=== PATIENT | male | born 1980 | race Caucasian/White ===

== ENCOUNTER 2016-07-28 18:27 | Emergency (ER) | payer OTHER ==
[~2016-07-28] VITALS: Ht 175.3 cm; Wt 100.0 kg
[2016-07-28] MEDS ORDERED: SODIUM CHLORIDE 0.9% 1,000 ML IV ONE (18:45)
[2016-07-28 19:03] LABS: BASOPHILS % (AUTO) 0.9 % (0.0-2.0); EOSINOPHILS % (AUTO) 2.5 % (1.0-6.0); HEMATOCRIT 48.1 % (41-53); HEMOGLOBIN 15.7 g/dL (13.5-17.5); LYMPHOCYTES # (AUTO) 2.1 K/uL (1.0-4.8); LYMPHOCYTES % (AUTO) 29.3 % (22.0-44.0); MEAN CORPUSCULAR HEMOGLOBIN 29.9 pg (26.0-34.0); MEAN CORPUSCULAR HGB CONC 32.7 G/dL (31.0-37.0); MEAN CORPUSCULAR VOLUME 91 fL (80-100); MONOCYTES # (AUTO) 0.5 K/uL (0.1-1.0); MONOCYTES % (AUTO) 7.2 % (2.0-9.0); NEUTROPHILS # (AUTO) 4.4 K/uL (1.8-7.7); NEUTROPHILS % (AUTO) 60.1 % (40.0-70.0); PLATELET COUNT (AUTO) 191 K/uL (150-450); RED BLOOD CELL COUNT(AUTO) 5.25 MIL/uL (4.50-5.90); RED CELL DISTRIBUTION WIDTH 13.6 % (11.5-14.5); WHITE BLOOD COUNT (AUTO) 7.2 K/uL (4.5-11.0)
[2016-07-28 19:10] LABS: ANION GAP 12 mmol/L (8-16); CALCIUM, TOTAL 8.2 mg/dL (8.8-10.5); CARBON DIOXIDE 25 mmol/L (22-29); CHLORIDE 106 mmol/L (98-107); CREATININE 1.07 mg/dL (0.60-1.30); GLOMERULAR FILTR. RATE CALC > 60 mL/min (>60); POTASSIUM 3.5 mmol/L (3.5-5.1); SODIUM SERUM 143 mmol/L (136-145); UREA NITROGEN, BLOOD 7 mg/dL (7-18)
[2016-07-28 19:16] LABS: ALANINE AMINOTRANSFERASE 152 U/L (12-78); ALBUMIN 3.6 g/dL (3.4-5.0); ASPARTATE AMINOTRANSFERASE 51 U/L (15-37); BILIRUBIN,TOTAL 0.3 mg/dL (0.1-1.0); TOTAL PROTEIN, SERUM 7.8 g/dL (6.4-8.2)
[2016-07-28] MEDS ORDERED: CefTRIAXone SODIUM 1 GM/VIAL IM ONE (20:45)
[2016-07-28] MEDS ORDERED: LIDOCAINE HCL/PF 1% 2 ML VIAL IM ONE (20:45)
[2016-07-28] MEDS ORDERED: AZITHROMYCIN 250 MG TABLET PO ONE (20:45)
[2016-07-28 22:47] VITALS: BP 122/64
== END 2016-07-28 22:50 | disposition home or self-care (01) ==
LOC: EMS 18:29
DX: Z00.8 Encounter for other general examination (principal); F10.129 Alcohol abuse with intoxication, unspecified; F17.210 Nicotine dependence, cigarettes, uncomplicated; F12.90 Cannabis use, unspecified, uncomplicated; Y90.8 Blood alcohol level of 240 mg/100 ml or more
CPT/HCPCS: 36415; 80053; 85025; 96360; 96361; 96372; 99285; G0480; J0696; J3490; J7030

== ENCOUNTER 2016-10-01 00:05 | Emergency (ER) | payer OTHER ==
[2016-10-01 04:51] VITALS: BP 119/70
== END 2016-10-01 04:55 | disposition home or self-care (01) ==
LOC: EMS 00:06
DX: F10.129 Alcohol abuse with intoxication, unspecified (principal); F12.90 Cannabis use, unspecified, uncomplicated; F17.210 Nicotine dependence, cigarettes, uncomplicated; Y90.9 Presence of alcohol in blood, level not specified
CPT/HCPCS: 99283; 99406

== ENCOUNTER 2017-08-12 15:42 | Emergency (ER) | payer OTHER ==
[~2017-08-12] VITALS: Ht 175.3 cm; Wt 104.5 kg
[2017-08-12 15:44] VITALS: BP 120/76
== END 2017-08-12 16:59 | disposition left against medical advice (07) ==
LOC: EMS 15:43
DX: K21.9 Gastro-esophageal reflux disease without esophagitis (principal); Z53.21 Procedure and treatment not carried out due to patient leaving prior to being seen by health care provider

== ENCOUNTER 2017-09-19 00:19 | Inpatient (IN) | payer MEDICAID, OTHER ==
[~2017-09-19] VITALS: Ht 172.7 cm; Wt 102.5 kg
[2017-09-19] VITALS (7 sets, daily range): BP systolic 119–152; BP diastolic 71–84
[2017-09-19 01:23] LABS: BASOPHILS % (AUTO) 1.2 % (0.0-2.0); EOSINOPHILS % (AUTO) 2.8 % (1.0-6.0); HEMATOCRIT 50.5 % (41-53); HEMOGLOBIN 17.5 g/dL (13.5-17.5); LYMPHOCYTES # (AUTO) 2.7 K/uL (1.0-4.8); LYMPHOCYTES % (AUTO) 39.3 % (22.0-44.0); MEAN CORPUSCULAR HEMOGLOBIN 31.3 pg (26.0-34.0); MEAN CORPUSCULAR HGB CONC 34.7 G/dL (31.0-37.0); MEAN CORPUSCULAR VOLUME 90 fL (80-100); MONOCYTES # (AUTO) 0.5 K/uL (0.1-1.0); MONOCYTES % (AUTO) 7.6 % (2.0-9.0); NEUTROPHILS # (AUTO) 3.4 K/uL (1.8-7.7); NEUTROPHILS % (AUTO) 49.1 % (40.0-70.0); PLATELET COUNT (AUTO) 253 K/uL (150-450); RED BLOOD CELL COUNT(AUTO) 5.59 MIL/uL (4.50-5.90); RED CELL DISTRIBUTION WIDTH 13.4 % (11.5-14.5)
[2017-09-19 01:33] LABS: ANION GAP 7 mmol/L (8-16); CALCIUM, TOTAL 8.1 mg/dL (8.8-10.5); CARBON DIOXIDE 30 mmol/L (22-29); CHLORIDE 100 mmol/L (98-107); CREATININE 1.09 mg/dL (0.60-1.30); GLOMERULAR FILTR. RATE CALC > 60 mL/min (>60); GLUCOSE,RANDOM 120 mg/dL (70-110); POTASSIUM 4.3 mmol/L (3.5-5.1); SODIUM SERUM 137 mmol/L (136-145); UREA NITROGEN, BLOOD 6 mg/dL (7-18)
[2017-09-19 01:39] LABS: ALANINE AMINOTRANSFERASE 187 U/L (12-78); ALBUMIN 3.7 g/dL (3.4-5.0); ALKALINE PHOSPHATASE 110 U/L (46-116); ASPARTATE AMINOTRANSFERASE 97 U/L (15-37); BILIRUBIN,TOTAL 0.4 mg/dL (0.1-1.0); TOTAL PROTEIN, SERUM 8.3 g/dL (6.4-8.2)
[2017-09-19] MEDS ORDERED: PB/HYOSCY/ATR/SCOP/LIDO/MAALOX 55 ML BOTTLE PO ONE (01:45)
[2017-09-19 02:20] LABS: AMPHET/METH SCREEN,URINE NEGATIVE (NEGATIVE); BARBITURATE SCREEN, URINE NEGATIVE (NEGATIVE); BENZODIAZEPINES SCREEN,URINE NEGATIVE (NEGATIVE); CANNABINOID SCREEN,URINE NEGATIVE (NEGATIVE); COCAINE SCREEN,URINE NEGATIVE (NEGATIVE); METHADONE SCREEN, URINE NEGATIVE (NEGATIVE); OPIATE SCREEN,URINE NEGATIVE (NEGATIVE)
[2017-09-19 02:21] LABS: PHENCYCLIDINE SCREEN,URINE NEGATIVE (NEGATIVE)
[2017-09-19] MEDS ORDERED: ZOLPIDEM TARTRATE 10 MG TABLET PO PRN (06:15)
[2017-09-19] MEDS ORDERED: HALOPERIDOL 5 MG TABLET PO PRN (06:15)
[2017-09-19] MEDS ORDERED: LORazepam 2 MG TABLET PO PRN ×2 (06:15→15:00)
[2017-09-19 08:40] LABS: APPEARANCE,URINE CLEAR (CLEAR); BILIRUBIN,URINE NEGATIVE (NEGATIVE); GLUCOSE, URINE (UA) NEGATIVE (NEGATIVE); KETONES,URINE NEGATIVE (NEGATIVE); LEUKOCYTE ESTERASE ,URINE NEGATIVE (NEGATIVE); NITRATE,URINE NEGATIVE (NEGATIVE); OCCULT BLOOD,URINE NEGATIVE (NEGATIVE); PH,URINE 5.5 (5.0-8.0); PROTEIN,URINE NEGATIVE (NEGATIVE); UROBILINOGEN,URINE 0.2 mg/dL (<=1.0)
[2017-09-19] MEDS ORDERED: HydrOXYzine PAMOATE 50 MG CAPSULE PO PRN (15:00)
[2017-09-19] MEDS ORDERED: CYANOCOBALAMIN 1,000 MCG/ML VIAL IM ONE (15:00)
[2017-09-19] MEDS ORDERED: LOPERAMIDE HCL 2 MG CAPSULE PO PRN (15:00)
[2017-09-19] MEDS ORDERED: GuaiFENesin/D-METHORPHAN [SUGAR-FREE] 200-20MG/10 ML SYRUP UDCUP PO PRN (15:00)
[2017-09-19] MEDS: THIAMINE HCL 100 MG TABLET PO SCH (16:37)
[2017-09-19] MEDS: FOLIC ACID 1 MG TABLET PO SCH (16:37)
[2017-09-19] MEDS: MULTIVITAMINS WITH MINERALS, THERAPEUTIC TABLET PO SCH (16:37)
[2017-09-20] VITALS (8 sets, daily range): BP systolic 117–148; BP diastolic 65–82
[2017-09-20] MEDS ORDERED: LORazepam 2 MG TABLET PO PRN (07:00)
[2017-09-20] MEDS: FOLIC ACID 1 MG TABLET PO SCH (08:29)
[2017-09-20] MEDS: MULTIVITAMINS WITH MINERALS, THERAPEUTIC TABLET PO SCH (08:29)
[2017-09-20] MEDS: LORazepam 2 MG TABLET PO SCH ×4 (08:29→20:17)
[2017-09-20] MEDS: THIAMINE HCL 100 MG TABLET PO SCH ×2 (08:29→16:42)
[2017-09-20 09:11] LABS: CHOL/HDL RATIO 3.5 (4.2-7.3)
[2017-09-20] MEDS ORDERED: IBUPROFEN 400 MG TABLET PO PRN (16:00)
[2017-09-20] MEDS ORDERED: ACETAMINOPHEN 325 MG TABLET PO PRN (16:00)
[2017-09-21 01:24] VITALS: BP 111/60
[2017-09-21 08:14] VITALS: BP 120/68
[2017-09-21 08:15] VITALS: BP 120/68
[2017-09-21 08:15] LABS: HEMOGLOBIN A1C 6.1 % (4.5-6.2)
[2017-09-21 08:27] LABS: THYROID STIMULATING HORMONE 2.29 uIU/mL (0.36-3.74)
[2017-09-21] MEDS: FOLIC ACID 1 MG TABLET PO SCH (09:34)
[2017-09-21] MEDS: MULTIVITAMINS WITH MINERALS, THERAPEUTIC TABLET PO SCH (09:34)
[2017-09-21] MEDS: THIAMINE HCL 100 MG TABLET PO SCH ×2 (09:34→16:36)
[2017-09-21] MEDS: QUEtiapine FUMARATE 25 MG TABLET PO SCH ×2 (09:37→16:36)
[2017-09-21] MEDS: LORazepam 2 MG TABLET PO SCH ×4 (09:46→20:27)
[2017-09-21 17:27] VITALS: BP 116/65
[2017-09-22 00:21] VITALS: BP 118/95
[2017-09-22 00:30] VITALS: BP 118/95
[2017-09-22] MEDS ORDERED: LORazepam 1 MG TABLET PO PRN (07:00)
[2017-09-22 08:09] VITALS: BP 122/65
[2017-09-22] MEDS: QUEtiapine FUMARATE 25 MG TABLET PO SCH (08:51)
[2017-09-22] MEDS: THIAMINE HCL 100 MG TABLET PO SCH (08:51)
[2017-09-22] MEDS: FOLIC ACID 1 MG TABLET PO SCH (08:52)
[2017-09-22] MEDS: MULTIVITAMINS WITH MINERALS, THERAPEUTIC TABLET PO SCH (08:52)
[2017-09-22] MEDS: LORazepam 1 MG TABLET PO SCH ×2 (08:52→12:25)
[2017-09-22] MEDS ORDERED: QUET25TA PO (11:53)
[2017-09-23] MEDS ORDERED: LORazepam 1 MG TABLET PO PRN (07:00)
== END 2017-09-22 15:16 | disposition home or self-care (01) | DRG 750 ==
LOC: EMS 00:20 → B2S 13:50
PROVIDERS: ADMIT Psychiatry & Neurology Child & Adolescent Psychiatry; ATTEND Psychiatry & Neurology Child & Adolescent Psychiatry
DX: F20.0 Paranoid schizophrenia (principal); R45.851 Suicidal ideations; R74.0 Nonspecific elevation of levels of transaminase and lactic acid dehydrogenase [LDH]; F32.9 Major depressive disorder, single episode, unspecified; F17.210 Nicotine dependence, cigarettes, uncomplicated; F41.9 Anxiety disorder, unspecified; Y90.8 Blood alcohol level of 240 mg/100 ml or more; F10.20 Alcohol dependence, uncomplicated
CPT/HCPCS: 80074; 83036; 84443; 99285; G0480; J3420

== ENCOUNTER 2017-10-11 00:16 | Emergency (ER) | payer MEDICAID, OTHER ==
[~2017-10-11] VITALS: Ht 175.3 cm; Wt 109.1 kg
[~2017-10-11 00:16] MED LIST: QUET25TA PO
[2017-10-11 00:24] VITALS: BP 127/73
[2017-10-11] MEDS ORDERED: CEPHALEXIN MONOHYDRATE 500 MG CAPSULE PO ONE (01:30)
== END 2017-10-11 01:44 | disposition home or self-care (01) ==
LOC: EMS 00:20
DX: L03.114 Cellulitis of left upper limb (principal); F12.90 Cannabis use, unspecified, uncomplicated; F15.90 Other stimulant use, unspecified, uncomplicated; F17.210 Nicotine dependence, cigarettes, uncomplicated
CPT/HCPCS: 99283

== ENCOUNTER 2017-10-23 18:59 | Emergency (ER) | payer OTHER ==
[~2017-10-23] VITALS: Ht 177.8 cm; Wt 113.6 kg
[2017-10-23 19:03] VITALS: BP 114/74
== END 2017-10-23 21:35 | disposition left against medical advice (07) ==
LOC: EMS 19:00
DX: F10.129 Alcohol abuse with intoxication, unspecified (principal); F17.210 Nicotine dependence, cigarettes, uncomplicated; Z53.21 Procedure and treatment not carried out due to patient leaving prior to being seen by health care provider

== ENCOUNTER 2017-10-30 12:20 | Emergency (ER) | payer OTHER ==
[~2017-10-30] VITALS: Ht 175.3 cm; Wt 100.0 kg
[2017-10-30 12:57] VITALS: BP 137/75
== END 2017-10-30 13:45 | disposition left against medical advice (07) ==
LOC: EMS 12:21
DX: F10.129 Alcohol abuse with intoxication, unspecified (principal); F17.210 Nicotine dependence, cigarettes, uncomplicated; F20.9 Schizophrenia, unspecified; Z53.21 Procedure and treatment not carried out due to patient leaving prior to being seen by health care provider; Y90.8 Blood alcohol level of 240 mg/100 ml or more
CPT/HCPCS: 36415; 99281; G0480

== ENCOUNTER 2018-01-10 10:42 | Emergency (ER) | payer OTHER ==
[~2018-01-10] VITALS: Ht 175.3 cm; Wt 102.3 kg
[2018-01-10] MEDS ORDERED: ONDANSETRON HCL 4 MG/2 ML VIAL IVP ONE (12:30)
[2018-01-10] MEDS ORDERED: SODIUM CHLORIDE 0.9% 1,000 ML IV ONE (12:30)
[2018-01-10 12:45] LABS: BASOPHILS % (AUTO) 0.4 % (0.0-2.0); EOSINOPHILS % (AUTO) 0.1 % (1.0-6.0); HEMATOCRIT 49.9 % (41-53); LYMPHOCYTES # (AUTO) 0.8 K/uL (1.0-4.8); LYMPHOCYTES % (AUTO) 12.4 % (22.0-44.0); MEAN CORPUSCULAR HEMOGLOBIN 31.4 pg (26.0-34.0); MEAN CORPUSCULAR VOLUME 92 fL (80-100); MONOCYTES # (AUTO) 0.3 K/uL (0.1-1.0); MONOCYTES % (AUTO) 4.7 % (2.0-9.0); NEUTROPHILS # (AUTO) 5.5 K/uL (1.8-7.7); NEUTROPHILS % (AUTO) 82.4 % (40.0-70.0); PLATELET COUNT (AUTO) 241 K/uL (150-450); RED BLOOD CELL COUNT(AUTO) 5.41 MIL/uL (4.50-5.90); RED CELL DISTRIBUTION WIDTH 13.5 % (11.5-14.5)
[2018-01-10 12:53] LABS: ANION GAP 10 mmol/L (8-16); CALCIUM, TOTAL 8.5 mg/dL (8.8-10.5); CARBON DIOXIDE 29 mmol/L (22-29); CHLORIDE 97 mmol/L (98-107); CREATININE 0.89 mg/dL (0.60-1.30); GLOMERULAR FILTR. RATE CALC > 60 mL/min (>60); GLUCOSE,RANDOM 115 mg/dL (70-110); POTASSIUM 3.9 mmol/L (3.5-5.1); SODIUM SERUM 136 mmol/L (136-145); UREA NITROGEN, BLOOD 4 mg/dL (7-18)
[2018-01-10 12:58] LABS: APPEARANCE,URINE CLEAR (CLEAR); BILIRUBIN,URINE NEGATIVE (NEGATIVE); GLUCOSE, URINE (UA) NEGATIVE (NEGATIVE); KETONES,URINE NEGATIVE (NEGATIVE); LEUKOCYTE ESTERASE ,URINE NEGATIVE (NEGATIVE); NITRATE,URINE NEGATIVE (NEGATIVE); OCCULT BLOOD,URINE TRACE (NEGATIVE); PH,URINE 6.5 (5.0-8.0); PROTEIN,URINE NEGATIVE (NEGATIVE); UROBILINOGEN,URINE 0.2 mg/dL (<=1.0)
[2018-01-10 12:59] LABS: ALANINE AMINOTRANSFERASE 83 U/L (12-78); ALBUMIN 3.6 g/dL (3.4-5.0); ALKALINE PHOSPHATASE 100 U/L (46-116); ASPARTATE AMINOTRANSFERASE 44 U/L (15-37); BILIRUBIN,TOTAL 0.5 mg/dL (0.1-1.0); LIPASE 190 U/L (73-393); TOTAL PROTEIN, SERUM 8.4 g/dL (6.4-8.2)
[2018-01-10 13:06] LABS: BACTERIA,URINE None Seen /HPF (None Seen); RBC,URINE 0-2 /HPF (0-2); WBC,URINE None Seen /HPF (0-5)
[2018-01-10 15:07] VITALS: BP 125/79
== END 2018-01-10 15:15 | disposition home or self-care (01) ==
LOC: EMS 12:06
DX: F41.9 Anxiety disorder, unspecified (principal); R03.0 Elevated blood-pressure reading, without diagnosis of hypertension; R51 Headache; R11.0 Nausea; F10.10 Alcohol abuse, uncomplicated; F20.9 Schizophrenia, unspecified; F17.210 Nicotine dependence, cigarettes, uncomplicated
CPT/HCPCS: 36415; 80053; 81001; 83690; 85025; 96374; 99284; J2405; J7030

== ENCOUNTER 2018-04-26 23:14 | Emergency (ER) | payer OTHER ==
[~2018-04-26] VITALS: Ht 170.2 cm; Wt 113.6 kg
[2018-04-26 23:53] LABS: BASOPHILS % (AUTO) 0.8 % (0.0-2.0); HEMATOCRIT 47.5 % (41-53); HEMOGLOBIN 16.3 g/dL (13.5-17.5); LYMPHOCYTES % (AUTO) 19.5 % (22.0-44.0); MEAN CORPUSCULAR HEMOGLOBIN 31.2 pg (26.0-34.0); MEAN CORPUSCULAR HGB CONC 34.2 G/dL (31.0-37.0); MEAN CORPUSCULAR VOLUME 91 fL (80-100); MONOCYTES # (AUTO) 0.9 K/uL (0.1-1.0); MONOCYTES % (AUTO) 8.7 % (2.0-9.0); NEUTROPHILS # (AUTO) 7.1 K/uL (1.8-7.7); PLATELET COUNT (AUTO) 203 K/uL (150-450); RED BLOOD CELL COUNT(AUTO) 5.22 MIL/uL (4.50-5.90); RED CELL DISTRIBUTION WIDTH 13.4 % (11.5-14.5)
[2018-04-26 23:56] LABS: APPEARANCE,URINE CLEAR (CLEAR); BILIRUBIN,URINE NEGATIVE (NEGATIVE); GLUCOSE, URINE (UA) NEGATIVE (NEGATIVE); KETONES,URINE NEGATIVE (NEGATIVE); LEUKOCYTE ESTERASE ,URINE NEGATIVE (NEGATIVE); NITRATE,URINE NEGATIVE (NEGATIVE); OCCULT BLOOD,URINE TRACE (NEGATIVE); PROTEIN,URINE POS 1+ (NEGATIVE); UROBILINOGEN,URINE 0.2 mg/dL (<=1.0)
[2018-04-27 00:03] LABS: ANION GAP 14 mmol/L (8-16); CALCIUM, TOTAL 8.2 mg/dL (8.8-10.5); CARBON DIOXIDE 22 mmol/L (22-29); CHLORIDE 103 mmol/L (98-107); CREATININE 0.98 mg/dL (0.60-1.30); GLOMERULAR FILTR. RATE CALC > 60 mL/min (>60); GLUCOSE,RANDOM 111 mg/dL (70-110); POTASSIUM 3.7 mmol/L (3.5-5.1); SODIUM SERUM 139 mmol/L (136-145); UREA NITROGEN, BLOOD 11 mg/dL (7-18)
[2018-04-27 00:06] LABS: BACTERIA,URINE None Seen /HPF (None Seen); RBC,URINE 0-2 /HPF (0-2); SQUAMOUS EPITHELIAL CELL,UR None Seen /LPF (None Seen)
[2018-04-27 00:09] LABS: ALANINE AMINOTRANSFERASE 193 U/L (12-78); ALBUMIN 3.6 g/dL (3.4-5.0); ALKALINE PHOSPHATASE 84 U/L (46-116); ASPARTATE AMINOTRANSFERASE 111 U/L (15-37); BILIRUBIN,TOTAL 0.3 mg/dL (0.1-1.0)
[2018-04-27 00:17] LABS: AMPHET/METH SCREEN,URINE NEGATIVE (NEGATIVE); BARBITURATE SCREEN, URINE NEGATIVE (NEGATIVE); BENZODIAZEPINES SCREEN,URINE NEGATIVE (NEGATIVE); CANNABINOID SCREEN,URINE NEGATIVE (NEGATIVE); COCAINE SCREEN,URINE NEGATIVE (NEGATIVE); METHADONE SCREEN, URINE NEGATIVE (NEGATIVE); OPIATE SCREEN,URINE NEGATIVE (NEGATIVE); PHENCYCLIDINE SCREEN,URINE NEGATIVE (NEGATIVE)
[2018-04-27] MEDS ORDERED: SODIUM CHLORIDE 0.9% 1,000 ML IV ONE (01:30)
[2018-04-27 01:49] VITALS: BP 130/78
[2018-04-27 01:52] LABS: LIPASE 290 U/L (73-393)
== END 2018-04-27 01:59 | disposition home or self-care (01) ==
LOC: EMS 23:15
DX: F10.129 Alcohol abuse with intoxication, unspecified (principal); R74.0 Nonspecific elevation of levels of transaminase and lactic acid dehydrogenase [LDH]; R00.0 Tachycardia, unspecified; F20.9 Schizophrenia, unspecified; F17.210 Nicotine dependence, cigarettes, uncomplicated; F15.90 Other stimulant use, unspecified, uncomplicated; Y90.8 Blood alcohol level of 240 mg/100 ml or more
CPT/HCPCS: 36415; 80053; 80307; 81001; 83690; 84484; 85025; 93005; 99284; G0480; J7030

== ENCOUNTER 2018-06-28 11:37 | Emergency (ER) | payer OTHER ==
[~2018-06-28] VITALS: Ht 177.8 cm; Wt 104.5 kg
[2018-06-28 11:38] VITALS: BP 117/89
[2018-06-28 13:32] LABS: BASOPHILS % (AUTO) 1.2 % (0.0-2.0); EOSINOPHILS % (AUTO) 2.3 % (1.0-6.0); HEMOGLOBIN 17.7 g/dL (13.5-17.5); LYMPHOCYTES # (AUTO) 2.5 K/uL (1.0-4.8); LYMPHOCYTES % (AUTO) 33.2 % (22.0-44.0); MEAN CORPUSCULAR HEMOGLOBIN 31.1 pg (26.0-34.0); MEAN CORPUSCULAR VOLUME 92 fL (80-100); MONOCYTES # (AUTO) 0.4 K/uL (0.1-1.0); MONOCYTES % (AUTO) 5.7 % (2.0-9.0); NEUTROPHILS # (AUTO) 4.4 K/uL (1.8-7.7); NEUTROPHILS % (AUTO) 57.6 % (40.0-70.0); PLATELET COUNT (AUTO) 267 K/uL (150-450); RED BLOOD CELL COUNT(AUTO) 5.68 MIL/uL (4.50-5.90); RED CELL DISTRIBUTION WIDTH 13.6 % (11.5-14.5)
[2018-06-28 13:46] LABS: ANION GAP 13 mmol/L (8-16); CALCIUM, TOTAL 8.6 mg/dL (8.8-10.5); CARBON DIOXIDE 24 mmol/L (22-29); CHLORIDE 103 mmol/L (98-107); CREATININE 0.81 mg/dL (0.60-1.30); GLOMERULAR FILTR. RATE CALC > 60 mL/min (>60); GLUCOSE,RANDOM 104 mg/dL (70-110); SODIUM SERUM 140 mmol/L (136-145); UREA NITROGEN, BLOOD 7 mg/dL (7-18)
[2018-06-28 13:50] LABS: ALANINE AMINOTRANSFERASE 113 U/L (12-78); ALKALINE PHOSPHATASE 96 U/L (46-116); ASPARTATE AMINOTRANSFERASE 46 U/L (15-37); BILIRUBIN,TOTAL 0.2 mg/dL (0.1-1.0); TOTAL PROTEIN, SERUM 8.7 g/dL (6.4-8.2)
== END 2018-06-28 17:33 | disposition left against medical advice (07) ==
LOC: EMS 11:38
DX: R10.9 Unspecified abdominal pain (principal); F31.9 Bipolar disorder, unspecified; F41.9 Anxiety disorder, unspecified; F20.9 Schizophrenia, unspecified; F12.90 Cannabis use, unspecified, uncomplicated; F17.210 Nicotine dependence, cigarettes, uncomplicated; F15.90 Other stimulant use, unspecified, uncomplicated

== ENCOUNTER 2021-12-17 20:30 | Emergency (ER) | payer OTHER | END 2021-12-17 21:30 | disposition left against medical advice (07) | LOC: EMS 20:31 | DX: Z53.21 Procedure and treatment not carried out due to patient leaving prior to being seen by health care provider (principal) ==

== ENCOUNTER 2022-02-17 19:15 | Emergency (ER) | payer OTHER ==
[~2022-02-17] VITALS: Ht 170.2 cm; Wt 84.1 kg
[2022-02-17 20:09] LABS: APPEARANCE,URINE CLEAR (CLEAR); BILIRUBIN,URINE NEGATIVE (NEGATIVE); GLUCOSE, URINE (UA) NEGATIVE (NEGATIVE); KETONES,URINE NEGATIVE (NEGATIVE); LEUKOCYTE ESTERASE ,URINE NEGATIVE (NEGATIVE); NITRATE,URINE NEGATIVE (NEGATIVE); OCCULT BLOOD,URINE NEGATIVE (NEGATIVE); PH,URINE 6.5 (5.0-8.0); PROTEIN,URINE NEGATIVE (NEGATIVE); SPECIFIC GRAVITIY, URINE 1.004 (1.003-1.030); UROBILINOGEN,URINE <=1.0 mg/dL (<=1.0)
[2022-02-17 21:09] LABS: BASOPHILS % (AUTO) 0.5 % (0.0-2.0); HEMATOCRIT 46.2 % (41-53); HEMOGLOBIN 15.4 g/dL (13.5-17.5); LYMPHOCYTES # (AUTO) 2.1 K/uL (1.0-4.8); LYMPHOCYTES % (AUTO) 25.9 % (22.0-44.0); MEAN CORPUSCULAR HEMOGLOBIN 28.9 pg (26.0-34.0); MEAN CORPUSCULAR HGB CONC 33.3 G/dL (31.0-37.0); MEAN CORPUSCULAR VOLUME 87 fL (80-100); MONOCYTES # (AUTO) 0.5 K/uL (0.1-1.0); MONOCYTES % (AUTO) 6.5 % (2.0-9.0); NEUTROPHILS # (AUTO) 5.2 K/uL (1.8-7.7); NEUTROPHILS % (AUTO) 64.1 % (40.0-70.0); PLATELET COUNT (AUTO) 187 K/uL (150-450); RED BLOOD CELL COUNT(AUTO) 5.33 MIL/uL (4.50-5.90); RED CELL DISTRIBUTION WIDTH 13.8 % (11.5-14.5)
[2022-02-17 21:17] LABS: ANION GAP 8 mmol/L (8-16); CALCIUM, TOTAL 9.2 mg/dL (8.8-10.5); CARBON DIOXIDE 31 mmol/L (22-29); CHLORIDE 101 mmol/L (98-107); CREATININE 1.08 mg/dL (0.60-1.30); GLUCOSE,RANDOM 132 mg/dL (70-110); SODIUM SERUM 140 mmol/L (136-145); UREA NITROGEN, BLOOD 10 mg/dL (7-18)
[2022-02-17 21:18] LABS: GLOMERULAR FILTR. RATE CALC > 60 mL/min (>60)
[2022-02-17 21:24] LABS: ALANINE AMINOTRANSFERASE 34 U/L (12-78); ALKALINE PHOSPHATASE 93 U/L (46-116); ASPARTATE AMINOTRANSFERASE 17 U/L (15-37); BILIRUBIN,TOTAL 0.3 mg/dL (0.1-1.0); TOTAL PROTEIN, SERUM 7.8 g/dL (6.4-8.2)
[2022-02-17 21:52] LABS: COVID AG,FIA SOURCE NASAL SWAB
[2022-02-17 22:10] LABS: INFLUENZA TYPE A NEGATIVE FOR TYPE A (NEGATIVE); INFLUENZA TYPE B NEGATIVE FOR TYPE B (NEGATIVE)
[2022-02-17 23:45] VITALS: BP 117/75
== END 2022-02-17 23:46 | disposition home or self-care (01) ==
LOC: EMS 19:17
DX: F20.9 Schizophrenia, unspecified (principal); F41.9 Anxiety disorder, unspecified; F31.9 Bipolar disorder, unspecified; B00.9 Herpesviral infection, unspecified; F17.210 Nicotine dependence, cigarettes, uncomplicated; F12.90 Cannabis use, unspecified, uncomplicated; F15.90 Other stimulant use, unspecified, uncomplicated; F10.90 Alcohol use, unspecified, uncomplicated; R30.9 Painful micturition, unspecified; Z20.822 Contact with and (suspected) exposure to COVID-19
CPT/HCPCS: 99284; 87426; 80053; 85025; 87804; 36415; 81003; G0480

== ENCOUNTER 2022-03-08 16:46 | Emergency (ER) | payer OTHER ==
[~2022-03-08] VITALS: Ht 172.7 cm; Wt 111.4 kg
[2022-03-08] MEDS ORDERED: TRAZ-252 PO (17:06)
[2022-03-08 17:11] LABS: COVID AG,FIA SOURCE NASAL SWAB
[2022-03-08 17:36] LABS: INFLUENZA TYPE A NEGATIVE FOR TYPE A (NEGATIVE); INFLUENZA TYPE B NEGATIVE FOR TYPE B (NEGATIVE)
[2022-03-08] MEDS ORDERED: ONDANSETRON HCL 4 MG TABLET PO ONE (20:30)
[2022-03-08] MEDS ORDERED: CLIN60LO6 TP (20:33)
[2022-03-08] MEDS ORDERED: ARIP5TAB37 PO (20:33)
[2022-03-08 20:34] VITALS: BP 121/75
[2022-03-08] MEDS ORDERED: ACETAMINOPHEN 325 MG TABLET PO ONE (20:45)
[2022-03-08] MEDS ORDERED: IBUPROFEN 400 MG TABLET PO ONE (20:45)
== END 2022-03-08 21:54 | disposition home or self-care (01) ==
LOC: EMS 16:51
DX: B34.9 Viral infection, unspecified (principal); Z20.822 Contact with and (suspected) exposure to COVID-19; F20.9 Schizophrenia, unspecified; F31.9 Bipolar disorder, unspecified; F41.9 Anxiety disorder, unspecified; F12.90 Cannabis use, unspecified, uncomplicated; F15.10 Other stimulant abuse, uncomplicated; F17.210 Nicotine dependence, cigarettes, uncomplicated
CPT/HCPCS: 99284; 87426; 87804; Q0162

== ENCOUNTER 2022-04-01 14:03 | Emergency (ER) | payer OTHER ==
[~2022-04-01] VITALS: Ht 172.7 cm; Wt 109.1 kg
[~2022-04-01 14:03] MED LIST changes: +ARIP5TAB37 PO; +CLIN60LO6 TP; -QUET25TA PO; +TRAZ-252 PO
[2022-04-01 14:13] LABS: COVID AG,FIA SOURCE NASAL SWAB
[2022-04-01 15:10] LABS: INFLUENZA TYPE A NEGATIVE FOR TYPE A (NEGATIVE); INFLUENZA TYPE B NEGATIVE FOR TYPE B (NEGATIVE)
[2022-04-01] MEDS: ACETAMINOPHEN 500 MG TABLET PO ONE (16:05)
[2022-04-01 16:53] VITALS: BP 123/62
== END 2022-04-01 17:00 | disposition home or self-care (01) ==
LOC: EMS 14:08
DX: B34.9 Viral infection, unspecified (principal); Z20.822 Contact with and (suspected) exposure to COVID-19; F20.9 Schizophrenia, unspecified; F31.9 Bipolar disorder, unspecified; F41.9 Anxiety disorder, unspecified; F12.90 Cannabis use, unspecified, uncomplicated; F15.10 Other stimulant abuse, uncomplicated; F17.210 Nicotine dependence, cigarettes, uncomplicated
CPT/HCPCS: 87804; 99283

== ENCOUNTER 2022-05-11 11:49 | Emergency (ER) | payer OTHER ==
[~2022-05-11] VITALS: Ht 167.6 cm; Wt 86.4 kg
[2022-05-11] MEDS ORDERED: ACETAMINOPHEN 500 MG TABLET PO ONE (15:00)
[2022-05-11 15:22] LABS: EOSINOPHILS % (AUTO) 2.1 % (1.0-6.0); HEMATOCRIT 47.4 % (41-53); HEMOGLOBIN 15.9 g/dL (13.5-17.5); LYMPHOCYTES # (AUTO) 2.4 K/uL (1.0-4.8); LYMPHOCYTES % (AUTO) 28.2 % (22.0-44.0); MEAN CORPUSCULAR HEMOGLOBIN 29.2 pg (26.0-34.0); MEAN CORPUSCULAR HGB CONC 33.5 G/dL (31.0-37.0); MEAN CORPUSCULAR VOLUME 87 fL (80-100); MONOCYTES # (AUTO) 0.6 K/uL (0.1-1.0); MONOCYTES % (AUTO) 6.7 % (2.0-9.0); NEUTROPHILS # (AUTO) 5.3 K/uL (1.8-7.7); PLATELET COUNT (AUTO) 220 K/uL (150-450); RED BLOOD CELL COUNT(AUTO) 5.44 MIL/uL (4.50-5.90); RED CELL DISTRIBUTION WIDTH 13.7 % (11.5-14.5)
[2022-05-11 15:24] LABS: ANION GAP 5 mmol/L (8-16); CALCIUM, TOTAL 8.9 mg/dL (8.8-10.5); CARBON DIOXIDE 31 mmol/L (22-29); CHLORIDE 102 mmol/L (98-107); CREATININE 1.01 mg/dL (0.60-1.30); GLUCOSE,RANDOM 86 mg/dL (70-110); SODIUM SERUM 138 mmol/L (136-145); UREA NITROGEN, BLOOD 12 mg/dL (7-18)
[2022-05-11 15:37] LABS: GLOMERULAR FILTR. RATE CALC > 60 mL/min (>60)
[2022-05-11 15:49] LABS: ALANINE AMINOTRANSFERASE 38 U/L (12-78); ALBUMIN 4.3 g/dL (3.4-5.0); ALKALINE PHOSPHATASE 89 U/L (46-116); ASPARTATE AMINOTRANSFERASE 21 U/L (15-37); BILIRUBIN,TOTAL 0.5 mg/dL (0.1-1.0); CREATINE KINASE, TOTAL ONLY 162 U/L (39-308); TOTAL PROTEIN, SERUM 8.6 g/dL (6.4-8.2)
[2022-05-11 16:00] VITALS: BP 124/73
[2022-05-11 16:13] LABS: INFLUENZA TYPE A NEGATIVE FOR TYPE A (NEGATIVE); INFLUENZA TYPE B NEGATIVE FOR TYPE B (NEGATIVE)
== END 2022-05-11 16:11 | disposition home or self-care (01) ==
LOC: EMS 12:12
DX: R07.89 Other chest pain (principal); U07.1 COVID-19; F41.9 Anxiety disorder, unspecified; F31.9 Bipolar disorder, unspecified; F20.9 Schizophrenia, unspecified; B00.9 Herpesviral infection, unspecified; F17.210 Nicotine dependence, cigarettes, uncomplicated; F12.90 Cannabis use, unspecified, uncomplicated; F15.90 Other stimulant use, unspecified, uncomplicated; F10.90 Alcohol use, unspecified, uncomplicated; Y90.9 Presence of alcohol in blood, level not specified
CPT/HCPCS: 71045; 80053; 82550; 84484; 85025; 87804; 93005; 99285; 36415-L1; 36415-TC

== ENCOUNTER 2022-05-20 17:11 | Emergency (ER) | payer OTHER ==
[~2022-05-20] VITALS: Ht 177.8 cm; Wt 107.0 kg
[2022-05-20 17:17] VITALS: BP 123/70
[2022-05-20] MEDS ORDERED: DIPH25CA85 PO (19:30)
[2022-05-20] MEDS ORDERED: PRED-554 PO (19:30)
== END 2022-05-20 20:06 | disposition home or self-care (01) ==
LOC: EMS 17:13
DX: R21 Rash and other nonspecific skin eruption (principal); F41.9 Anxiety disorder, unspecified; F31.9 Bipolar disorder, unspecified; F20.9 Schizophrenia, unspecified; F17.210 Nicotine dependence, cigarettes, uncomplicated; F12.90 Cannabis use, unspecified, uncomplicated; F15.10 Other stimulant abuse, uncomplicated
CPT/HCPCS: 99283; Z7502

== ENCOUNTER 2022-06-06 12:12 | Emergency (ER) | payer OTHER ==
[~2022-06-06] VITALS: Ht 175.3 cm; Wt 111.4 kg
[~2022-06-06 12:12] MED LIST changes: -ARIP5TAB37 PO; -CLIN60LO6 TP; +DIPH25CA85 PO; +PRED-554 PO; -TRAZ-252 PO
[2022-06-06] MEDS ORDERED: DOXY-354 PO (14:48)
[2022-06-06 15:02] VITALS: BP 103/71
== END 2022-06-06 15:04 | disposition home or self-care (01) ==
LOC: EMS 12:52
DX: F41.9 Anxiety disorder, unspecified (principal); L02.416 Cutaneous abscess of left lower limb; F31.9 Bipolar disorder, unspecified; F20.9 Schizophrenia, unspecified; B00.9 Herpesviral infection, unspecified; F17.210 Nicotine dependence, cigarettes, uncomplicated; F12.90 Cannabis use, unspecified, uncomplicated; F15.90 Other stimulant use, unspecified, uncomplicated
CPT/HCPCS: 93005; 99284; Z7502

== ENCOUNTER 2022-07-05 14:46 | Emergency (ER) | payer OTHER ==
[~2022-07-05] VITALS: Ht 175.3 cm; Wt 111.4 kg
[~2022-07-05 14:46] MED LIST changes: +DOXY-354 PO
[2022-07-05 15:26] LABS: BASOPHILS % (AUTO) 0.7 % (0.0-2.0); EOSINOPHILS % (AUTO) 4.4 % (1.0-6.0); HEMATOCRIT 46.1 % (41-53); HEMOGLOBIN 15.5 g/dL (13.5-17.5); LYMPHOCYTES % (AUTO) 27.1 % (22.0-44.0); MEAN CORPUSCULAR HEMOGLOBIN 29.3 pg (26.0-34.0); MEAN CORPUSCULAR HGB CONC 33.6 G/dL (31.0-37.0); MEAN CORPUSCULAR VOLUME 87 fL (80-100); MONOCYTES # (AUTO) 0.5 K/uL (0.1-1.0); MONOCYTES % (AUTO) 6.7 % (2.0-9.0); NEUTROPHILS # (AUTO) 4.4 K/uL (1.8-7.7); NEUTROPHILS % (AUTO) 61.1 % (40.0-70.0); PLATELET COUNT (AUTO) 185 K/uL (150-450); RED BLOOD CELL COUNT(AUTO) 5.29 MIL/uL (4.50-5.90); RED CELL DISTRIBUTION WIDTH 13.9 % (11.5-14.5)
[2022-07-05 15:35] LABS: ANION GAP 6 mmol/L (8-16); CALCIUM, TOTAL 8.9 mg/dL (8.8-10.5); CARBON DIOXIDE 31 mmol/L (22-29); CHLORIDE 104 mmol/L (98-107); GLOMERULAR FILTR. RATE CALC > 60 mL/min (>60); GLUCOSE,RANDOM 113 mg/dL (70-110); SODIUM SERUM 141 mmol/L (136-145); UREA NITROGEN, BLOOD 10 mg/dL (7-18)
[2022-07-05] MEDS ORDERED: MAG HYDROX/AL HYDROX/SIMETH 30 ML SUSP UDCUP PO ONE (15:45)
[2022-07-05] MEDS ORDERED: FAMOTIDINE 20 MG TABLET PO ONE (15:45)
[2022-07-05] MEDS ORDERED: ACETAMINOPHEN 500 MG TABLET PO ONE (15:45)
[2022-07-05 15:48] LABS: B-TYPE NATRIURETIC PEPTIDE 9 pg/mL (0-100)
[2022-07-05 16:00] LABS: ALANINE AMINOTRANSFERASE 32 U/L (12-78); ALBUMIN 4.2 g/dL (3.4-5.0); ALKALINE PHOSPHATASE 99 U/L (46-116); ASPARTATE AMINOTRANSFERASE 20 U/L (15-37); BILIRUBIN,TOTAL 0.3 mg/dL (0.1-1.0); CREATINE KINASE, TOTAL ONLY 141 U/L (39-308); TOTAL PROTEIN, SERUM 7.9 g/dL (6.4-8.2)
[2022-07-05 16:10] LABS: AMPHET/METH SCREEN,URINE NEGATIVE (NEGATIVE); BARBITURATE SCREEN, URINE NEGATIVE (NEGATIVE); BENZODIAZEPINES SCREEN,URINE NEGATIVE (NEGATIVE); CANNABINOID SCREEN,URINE NEGATIVE (NEGATIVE); COCAINE SCREEN,URINE NEGATIVE (NEGATIVE); METHADONE SCREEN, URINE NEGATIVE (NEGATIVE); OPIATE SCREEN,URINE NEGATIVE (NEGATIVE); PHENCYCLIDINE SCREEN,URINE NEGATIVE (NEGATIVE)
[2022-07-05 17:57] LABS: APPEARANCE,URINE CLEAR (CLEAR); BILIRUBIN,URINE NEGATIVE (NEGATIVE); GLUCOSE, URINE (UA) NEGATIVE (NEGATIVE); KETONES,URINE NEGATIVE (NEGATIVE); LEUKOCYTE ESTERASE ,URINE NEGATIVE (NEGATIVE); NITRATE,URINE NEGATIVE (NEGATIVE); OCCULT BLOOD,URINE NEGATIVE (NEGATIVE); PROTEIN,URINE NEGATIVE (NEGATIVE); SPECIFIC GRAVITIY, URINE 1.005 (1.003-1.030); UROBILINOGEN,URINE <=1.0 mg/dL (<=1.0)
[2022-07-05 18:22] VITALS: BP 93/48
== END 2022-07-05 18:23 | disposition home or self-care (01) ==
LOC: EMS 14:46
DX: M54.50 Low back pain, unspecified (principal); F41.9 Anxiety disorder, unspecified; F31.9 Bipolar disorder, unspecified; F20.9 Schizophrenia, unspecified; F17.210 Nicotine dependence, cigarettes, uncomplicated; F12.90 Cannabis use, unspecified, uncomplicated; F15.90 Other stimulant use, unspecified, uncomplicated
CPT/HCPCS: 99285; 71045; 80053; 82550; 83880; 84484; 85025; 36415; 93005; 81003; 80307 ×2; G0480

== ENCOUNTER 2022-07-12 11:49 | Emergency (ER) | payer OTHER ==
[~2022-07-12] VITALS: Ht 175.3 cm; Wt 111.4 kg
[2022-07-12 12:43] VITALS: BP 129/84
[2022-07-12] MEDS ORDERED: LIDOCAINE 5% TRANSDERMAL PATCH TD ONE (12:45)
[2022-07-12] MEDS ORDERED: HYDROCODONE/ACETAMINOPHEN 5-325 MG TABLET PO ONE (12:45)
[2022-07-12] MEDS ORDERED: BACLOFEN 10 MG TABLET PO ONE (12:45)
[2022-07-12 13:53] LABS: APPEARANCE,URINE CLEAR (CLEAR); BILIRUBIN,URINE NEGATIVE (NEGATIVE); GLUCOSE, URINE (UA) NEGATIVE (NEGATIVE); KETONES,URINE NEGATIVE (NEGATIVE); LEUKOCYTE ESTERASE ,URINE NEGATIVE (NEGATIVE); NITRATE,URINE NEGATIVE (NEGATIVE); OCCULT BLOOD,URINE NEGATIVE (NEGATIVE); PROTEIN,URINE NEGATIVE (NEGATIVE); UROBILINOGEN,URINE <=1.0 mg/dL (<=1.0)
[2022-07-12 13:57] LABS: BACTERIA,URINE None Seen /HPF (None Seen); RBC,URINE None Seen /HPF (0-2); WBC,URINE None Seen /HPF (0-5)
[2022-07-12] MEDS ORDERED: LIDO700A15 TP (14:48)
[2022-07-12] MEDS ORDERED: QUET25TA PO (19:57)
[2022-07-13] MEDS ORDERED: IBUP-1492 PO (15:22)
[2022-07-13] MEDS ORDERED: CYCL-448 PO (15:22)
== END 2022-07-12 15:08 | disposition home or self-care (01) ==
LOC: EMS 11:50
DX: M54.50 Low back pain, unspecified (principal); F41.9 Anxiety disorder, unspecified; F31.9 Bipolar disorder, unspecified; F20.9 Schizophrenia, unspecified; Z87.891 Personal history of nicotine dependence
CPT/HCPCS: 72100; 81001; 99284; Z7502; Z7610

== ENCOUNTER 2022-07-12 19:28 | Emergency (ER) | payer OTHER ==
[~2022-07-12] VITALS: Ht 175.3 cm; Wt 111.4 kg
[~2022-07-12 19:28] MED LIST changes: +LIDO700A15 TP
[2022-07-12 19:52] VITALS: BP 131/76
[2022-07-12] MEDS ORDERED: QUET25TA PO (19:57)
[2022-07-13] MEDS ORDERED: IBUP-1492 PO (15:22)
[2022-07-13] MEDS ORDERED: CYCL-448 PO (15:22)
== END 2022-07-13 01:38 | disposition left against medical advice (07) ==
LOC: EMS 19:35
DX: M54.9 Dorsalgia, unspecified (principal); Z53.21 Procedure and treatment not carried out due to patient leaving prior to being seen by health care provider
CPT/HCPCS: 99281; Z7502

== ENCOUNTER 2022-07-13 11:50 | Emergency (ER) | payer OTHER ==
[~2022-07-13] VITALS: Ht 175.3 cm; Wt 111.4 kg
[~2022-07-13 11:50] MED LIST changes: -DIPH25CA85 PO; -DOXY-354 PO; -PRED-554 PO; +QUET25TA PO
[2022-07-13] MEDS ORDERED: LIDOCAINE 5% TRANSDERMAL PATCH TD ONE (14:30)
[2022-07-13] MEDS ORDERED: KETOROLAC TROMETHAMINE 30 MG/ML VIAL IM ONE (14:30)
[2022-07-13] MEDS ORDERED: CYCLOBENZAPRINE HCL 10 MG TABLET PO ONE (14:30)
[2022-07-13 14:56] LABS: BASOPHILS % (AUTO) 0.8 % (0.0-2.0); EOSINOPHILS % (AUTO) 3.9 % (1.0-6.0); HEMATOCRIT 48.3 % (41-53); HEMOGLOBIN 15.8 g/dL (13.5-17.5); LYMPHOCYTES # (AUTO) 2.4 K/uL (1.0-4.8); LYMPHOCYTES % (AUTO) 32.9 % (22.0-44.0); MEAN CORPUSCULAR HEMOGLOBIN 28.6 pg (26.0-34.0); MEAN CORPUSCULAR HGB CONC 32.6 G/dL (31.0-37.0); MEAN CORPUSCULAR VOLUME 88 fL (80-100); MONOCYTES # (AUTO) 0.5 K/uL (0.1-1.0); MONOCYTES % (AUTO) 7.4 % (2.0-9.0); NEUTROPHILS # (AUTO) 4.1 K/uL (1.8-7.7); PLATELET COUNT (AUTO) 196 K/uL (150-450); RED BLOOD CELL COUNT(AUTO) 5.51 MIL/uL (4.50-5.90); RED CELL DISTRIBUTION WIDTH 14.3 % (11.5-14.5)
[2022-07-13 15:08] LABS: APPEARANCE,URINE CLEAR (CLEAR); BILIRUBIN,URINE NEGATIVE (NEGATIVE); GLUCOSE, URINE (UA) NEGATIVE (NEGATIVE); KETONES,URINE NEGATIVE (NEGATIVE); LEUKOCYTE ESTERASE ,URINE NEGATIVE (NEGATIVE); NITRATE,URINE NEGATIVE (NEGATIVE); OCCULT BLOOD,URINE NEGATIVE (NEGATIVE); PROTEIN,URINE NEGATIVE (NEGATIVE); SPECIFIC GRAVITIY, URINE 1.019 (1.003-1.030); UROBILINOGEN,URINE <=1.0 mg/dL (<=1.0)
[2022-07-13 15:09] LABS: ANION GAP 6 mmol/L (8-16); CARBON DIOXIDE 30 mmol/L (22-29); CHLORIDE 104 mmol/L (98-107); CREATININE 0.89 mg/dL (0.60-1.30); GLOMERULAR FILTR. RATE CALC > 60 mL/min (>60); GLUCOSE,RANDOM 118 mg/dL (70-110); POTASSIUM 4.7 mmol/L (3.5-5.1); SODIUM SERUM 140 mmol/L (136-145); UREA NITROGEN, BLOOD 10 mg/dL (7-18)
[2022-07-13 15:11] LABS: ALANINE AMINOTRANSFERASE 35 U/L (12-78); ALBUMIN 4.1 g/dL (3.4-5.0); ALKALINE PHOSPHATASE 97 U/L (46-116); ASPARTATE AMINOTRANSFERASE 20 U/L (15-37); BILIRUBIN,TOTAL 0.3 mg/dL (0.1-1.0); LIPASE 97 U/L (73-393); TOTAL PROTEIN, SERUM 7.9 g/dL (6.4-8.2)
[2022-07-13] MEDS ORDERED: IBUP-1492 PO (15:22)
[2022-07-13] MEDS ORDERED: CYCL-448 PO (15:22)
[2022-07-13 15:28] VITALS: BP 133/82
== END 2022-07-13 15:28 | disposition home or self-care (01) ==
LOC: EMS 11:53
DX: M54.9 Dorsalgia, unspecified (principal); F41.9 Anxiety disorder, unspecified; F31.9 Bipolar disorder, unspecified; F20.9 Schizophrenia, unspecified; B00.9 Herpesviral infection, unspecified; Z87.891 Personal history of nicotine dependence
CPT/HCPCS: 99283; 80053; 81003; 83690; 85025; 36415; 96372; J1885

== ENCOUNTER 2022-10-04 18:12 | Emergency (ER) | payer OTHER ==
[~2022-10-04] VITALS: Ht 175.3 cm; Wt 106.8 kg
[~2022-10-04 18:12] MED LIST changes: +CYCL-448 PO; +IBUP-1492 PO; -LIDO700A15 TP
[2022-10-04 18:33] VITALS: BP 115/79; PULSE 88; RESP 18; TEMP 98.6
== END 2022-10-04 21:55 | disposition left against medical advice (07) ==
LOC: EMS 18:12
DX: M54.2 Cervicalgia (principal); R68.84 Jaw pain; Z53.21 Procedure and treatment not carried out due to patient leaving prior to being seen by health care provider
CPT/HCPCS: 99281; Z7502

== ENCOUNTER 2022-11-13 14:18 | Emergency (ER) | payer OTHER ==
[~2022-11-13] VITALS: Ht 175.3 cm; Wt 103.0 kg
[2022-11-13 14:29] VITALS: BP 97/52; PULSE 88; RESP 16; TEMP 98.4
[2022-11-13 14:39] LABS: COVID AG,FIA SOURCE NASAL SWAB
[2022-11-13 14:48] LABS: INFLUENZA TYPE A NEGATIVE FOR TYPE A (NEGATIVE); INFLUENZA TYPE B NEGATIVE FOR TYPE B (NEGATIVE)
[2022-11-13] MEDS ORDERED: ACET-66 PO (15:04)
[2022-11-13] MEDS ORDERED: BENZ-227 PO (15:04)
[2022-11-13] MEDS ORDERED: GUAIFDM PO (15:04)
[2022-11-13] MEDS ORDERED: IBUP-1554 PO (15:04)
== END 2022-11-13 15:21 | disposition home or self-care (01) ==
LOC: EMS 14:23
DX: J06.9 Acute upper respiratory infection, unspecified (principal); F20.9 Schizophrenia, unspecified; F41.9 Anxiety disorder, unspecified; F31.9 Bipolar disorder, unspecified; Z87.891 Personal history of nicotine dependence; Z20.822 Contact with and (suspected) exposure to COVID-19
CPT/HCPCS: 87804; 99283

== ENCOUNTER 2022-12-13 14:03 | Emergency (ER) | payer OTHER ==
[~2022-12-13] VITALS: Ht 172.7 cm; Wt 104.0 kg
[~2022-12-13 14:03] MED LIST changes: +ACET-66 PO; +BENZ-227 PO; +GUAIFDM PO; +IBUP-1554 PO
[2022-12-13 14:10] VITALS: BP 119/74; PULSE 88; RESP 16; TEMP 98.5
[2022-12-13 14:39] LABS: BASOPHILS % (AUTO) 0.8 % (0.0-2.0); EOSINOPHILS % (AUTO) 2.6 % (1.0-6.0); HEMOGLOBIN 15.3 g/dL (13.5-17.5); LYMPHOCYTES # (AUTO) 2.1 K/uL (1.0-4.8); LYMPHOCYTES % (AUTO) 25.3 % (22.0-44.0); MEAN CORPUSCULAR HEMOGLOBIN 29.2 pg (26.0-34.0); MEAN CORPUSCULAR HGB CONC 33.2 G/dL (31.0-37.0); MEAN CORPUSCULAR VOLUME 88 fL (80-100); MONOCYTES # (AUTO) 0.5 K/uL (0.1-1.0); MONOCYTES % (AUTO) 5.7 % (2.0-9.0); NEUTROPHILS # (AUTO) 5.4 K/uL (1.8-7.7); NEUTROPHILS % (AUTO) 65.6 % (40.0-70.0); PLATELET COUNT (AUTO) 209 K/uL (150-450); RED BLOOD CELL COUNT(AUTO) 5.24 MIL/uL (4.50-5.90); RED CELL DISTRIBUTION WIDTH 13.6 % (11.5-14.5); WHITE BLOOD COUNT (AUTO) 8.2 K/uL (4.5-11.0)
[2022-12-13 14:44] LABS: ANION GAP 11 mmol/L (8-16); CALCIUM, TOTAL 8.6 mg/dL (8.8-10.5); CARBON DIOXIDE 30 mmol/L (22-29); CHLORIDE 100 mmol/L (98-107); CREATININE 0.87 mg/dL (0.60-1.30); GLOMERULAR FILTR. RATE CALC > 60 mL/min (>60); GLUCOSE,RANDOM 115 mg/dL (70-110); POTASSIUM 3.9 mmol/L (3.5-5.1); SODIUM SERUM 141 mmol/L (136-145); UREA NITROGEN, BLOOD 11 mg/dL (7-18)
[2022-12-13 14:52] LABS: TROPONIN I-HIGH SENSITIVITY 5 ng/L (<76)
[2022-12-13 14:55] LABS: B-TYPE NATRIURETIC PEPTIDE 33 pg/mL (0-100)
[2022-12-13 14:56] LABS: ALCOHOL, BLOOD (SERUM) < 3 mg/dL (0-10)
[2022-12-13 15:08] LABS: ALANINE AMINOTRANSFERASE 27 U/L (12-78); ALBUMIN 3.9 g/dL (3.4-5.0); ALKALINE PHOSPHATASE 91 U/L (46-116); ASPARTATE AMINOTRANSFERASE 16 U/L (15-37); BILIRUBIN,TOTAL 0.3 mg/dL (0.1-1.0); CREATINE KINASE, TOTAL ONLY 136 U/L (39-308); TOTAL PROTEIN, SERUM 7.7 g/dL (6.4-8.2)
[2022-12-13] MEDS ORDERED: ACET-3385 PO (17:03)
== END 2022-12-13 17:14 | disposition home or self-care (01) ==
LOC: EMS 14:05
DX: R07.89 Other chest pain (principal); F41.9 Anxiety disorder, unspecified; F31.9 Bipolar disorder, unspecified; F20.9 Schizophrenia, unspecified; Z87.891 Personal history of nicotine dependence
CPT/HCPCS: 99285; 71045; 80053; 82550; 83880; 84484; 85025; 36415; 93005; G0480

== ENCOUNTER 2022-12-26 20:31 | Emergency (ER) | payer OTHER ==
[~2022-12-26] VITALS: Ht 175.3 cm; Wt 105.0 kg
[~2022-12-26 20:31] MED LIST changes: +ACET-3385 PO; -ACET-66 PO; -BENZ-227 PO; -CYCL-448 PO; -GUAIFDM PO; -IBUP-1492 PO; -IBUP-1554 PO; -QUET25TA PO
[2022-12-26 20:44] VITALS: TEMP 98.5
[2022-12-26 21:27] LABS: BASOPHILS % (AUTO) 0.9 % (0.0-2.0); EOSINOPHILS % (AUTO) 2.1 % (1.0-6.0); HEMATOCRIT 46.2 % (41-53); HEMOGLOBIN 15.7 g/dL (13.5-17.5); LYMPHOCYTES # (AUTO) 2.3 K/uL (1.0-4.8); LYMPHOCYTES % (AUTO) 23.4 % (22.0-44.0); MEAN CORPUSCULAR HEMOGLOBIN 29.9 pg (26.0-34.0); MEAN CORPUSCULAR VOLUME 88 fL (80-100); MONOCYTES # (AUTO) 0.6 K/uL (0.1-1.0); NEUTROPHILS # (AUTO) 6.7 K/uL (1.8-7.7); NEUTROPHILS % (AUTO) 67.6 % (40.0-70.0); PLATELET COUNT (AUTO) 216 K/uL (150-450); RED BLOOD CELL COUNT(AUTO) 5.25 MIL/uL (4.50-5.90); RED CELL DISTRIBUTION WIDTH 13.7 % (11.5-14.5)
[2022-12-26 21:32] LABS: PH,URINE DRUG SCREEN 6.5 (5.0-8.0)
[2022-12-26 21:35] LABS: ANION GAP 4 mmol/L (8-16); CALCIUM, TOTAL 9.6 mg/dL (8.8-10.5); CARBON DIOXIDE 32 mmol/L (22-29); CHLORIDE 102 mmol/L (98-107); CREATININE 0.93 mg/dL (0.60-1.30); GLOMERULAR FILTR. RATE CALC > 60 mL/min (>60); GLUCOSE,RANDOM 95 mg/dL (70-110); POTASSIUM 4.2 mmol/L (3.5-5.1); SODIUM SERUM 138 mmol/L (136-145); UREA NITROGEN, BLOOD 8 mg/dL (7-18)
[2022-12-26 21:39] LABS: ALCOHOL, URINE DRUG SCREEN NEGATIVE (NEGATIVE); AMPHET/METH SCREEN,URINE NEGATIVE (NEGATIVE); BARBITURATE SCREEN, URINE NEGATIVE (NEGATIVE); BENZODIAZEPINES SCREEN,URINE NEGATIVE (NEGATIVE); CANNABINOID SCREEN,URINE NEGATIVE (NEGATIVE); COCAINE SCREEN,URINE NEGATIVE (NEGATIVE); METHADONE SCREEN, URINE NEGATIVE (NEGATIVE); OPIATE SCREEN,URINE NEGATIVE (NEGATIVE); PHENCYCLIDINE SCREEN,URINE NEGATIVE (NEGATIVE)
[2022-12-26 21:41] LABS: ALANINE AMINOTRANSFERASE 27 U/L (12-78); ALBUMIN 4.3 g/dL (3.4-5.0); ALKALINE PHOSPHATASE 88 U/L (46-116); ASPARTATE AMINOTRANSFERASE 15 U/L (15-37); BILIRUBIN,TOTAL 0.4 mg/dL (0.1-1.0); LIPASE 26 U/L (16-77); TOTAL PROTEIN, SERUM 8.3 g/dL (6.4-8.2)
[2022-12-26 21:43] LABS: LACTIC ACID 1.5 mmol/L (0.4-2.0)
[2022-12-26 21:59] LABS: TROPONIN I-HIGH SENSITIVITY Less Than 4 ng/L (<76)
[2022-12-26 22:28] LABS: ALCOHOL, BLOOD (SERUM) < 3 mg/dL (0-10)
[2022-12-26] MEDS ORDERED: IBUPROFEN 600 MG TABLET PO ONE (22:45)
[2022-12-26 23:07] VITALS: BP 126/84; PULSE 79; RESP 18
== END 2022-12-26 23:33 | disposition home or self-care (01) ==
LOC: EMS 20:31
DX: R07.89 Other chest pain (principal); F20.9 Schizophrenia, unspecified
CPT/HCPCS: 99285; 71045; 80053; 83605; 83690; 84484; 85025; 36415; 93005; 80307; G0480

== ENCOUNTER 2023-02-13 18:53 | Emergency (ER) | payer OTHER ==
[~2023-02-13] VITALS: Ht 172.7 cm; Wt 104.5 kg
[2023-02-13 19:10] VITALS: BP 105/76; PULSE 90; RESP 16; TEMP 98.2
[2023-02-13 22:19] LABS: BASOPHILS % (AUTO) 0.4 % (0.0-2.0); EOSINOPHILS % (AUTO) 2.8 % (1.0-6.0); HEMATOCRIT 45.8 % (41-53); HEMOGLOBIN 15.3 g/dL (13.5-17.5); LYMPHOCYTES # (AUTO) 2.7 K/uL (1.0-4.8); LYMPHOCYTES % (AUTO) 31.8 % (22.0-44.0); MEAN CORPUSCULAR HEMOGLOBIN 29.5 pg (26.0-34.0); MEAN CORPUSCULAR HGB CONC 33.4 G/dL (31.0-37.0); MEAN CORPUSCULAR VOLUME 88 fL (80-100); MONOCYTES # (AUTO) 0.5 K/uL (0.1-1.0); MONOCYTES % (AUTO) 6.1 % (2.0-9.0); NEUTROPHILS % (AUTO) 58.9 % (40.0-70.0); PLATELET COUNT (AUTO) 201 K/uL (150-450); RED BLOOD CELL COUNT(AUTO) 5.19 MIL/uL (4.50-5.90); RED CELL DISTRIBUTION WIDTH 13.5 % (11.5-14.5); WHITE BLOOD COUNT (AUTO) 8.5 K/uL (4.5-11.0)
[2023-02-13 22:32] LABS: PROTHROMBIN TIME 10.9 SEC (9.4-11.6)
[2023-02-13 22:35] LABS: TROPONIN I-HIGH SENSITIVITY 5 ng/L (<76)
[2023-02-13 22:37] LABS: B-TYPE NATRIURETIC PEPTIDE 8 pg/mL (0-100)
[2023-02-13 22:38] LABS: ANION GAP 6 mmol/L (8-16); CARBON DIOXIDE 30 mmol/L (22-29); CHLORIDE 101 mmol/L (98-107); GLOMERULAR FILTR. RATE CALC > 60 mL/min (>60); GLUCOSE,RANDOM 101 mg/dL (70-110); POTASSIUM 4.2 mmol/L (3.5-5.1); SODIUM SERUM 137 mmol/L (136-145); UREA NITROGEN, BLOOD 16 mg/dL (7-18)
[2023-02-13 23:01] LABS: ALANINE AMINOTRANSFERASE 39 U/L (12-78); ALBUMIN 4.2 g/dL (3.4-5.0); ALKALINE PHOSPHATASE 85 U/L (46-116); ASPARTATE AMINOTRANSFERASE 15 U/L (15-37); BILIRUBIN,TOTAL 0.3 mg/dL (0.1-1.0); CREATINE KINASE, TOTAL ONLY 161 U/L (39-308); TOTAL PROTEIN, SERUM 8.5 g/dL (6.4-8.2)
[2023-02-13 23:02] LABS: APPEARANCE,URINE CLEAR (CLEAR); BILIRUBIN,URINE NEGATIVE (NEGATIVE); COLOR,URINE COLORLESS (YELLOW); GLUCOSE, URINE (UA) NEGATIVE (NEGATIVE); KETONES,URINE NEGATIVE (NEGATIVE); LEUKOCYTE ESTERASE ,URINE NEGATIVE (NEGATIVE); NITRATE,URINE NEGATIVE (NEGATIVE); OCCULT BLOOD,URINE NEGATIVE (NEGATIVE); PROTEIN,URINE NEGATIVE (NEGATIVE); SPECIFIC GRAVITIY, URINE 1.008 (1.003-1.030); UROBILINOGEN,URINE <=1.0 mg/dL (<=1.0)
== END 2023-02-13 23:37 | disposition home or self-care (01) ==
LOC: EMS 18:53
DX: S29.012A Strain of muscle and tendon of back wall of thorax, initial encounter (principal); L73.9 Follicular disorder, unspecified; F20.9 Schizophrenia, unspecified; X58.XXXA Exposure to other specified factors, initial encounter; Y93.89 Activity, other specified; Y92.89 Other specified places as the place of occurrence of the external cause; Y99.8 Other external cause status
CPT/HCPCS: 71045; 80053; 81003; 82550; 83880; 84484; 85025; 85610; 85730; 93005; 99285; 36415-L1; 36415-TC

== ENCOUNTER 2023-02-14 18:55 | Emergency (ER) | payer OTHER ==
[~2023-02-14] VITALS: Ht 177.8 cm; Wt 113.6 kg
[2023-02-14 18:57] VITALS: TEMP 98.4
[2023-02-14] MEDS ORDERED: BISMUTH SUBSALICYLATE 525 MG/30 ML SUSPENSION UDCUP PO ONE (21:00)
[2023-02-14] MEDS ORDERED: SODIUM CHLORIDE 0.9% 1,000 ML IV ONE (21:00)
[2023-02-14 21:12] LABS: BASOPHILS % (AUTO) 0.5 % (0.0-2.0); EOSINOPHILS % (AUTO) 3.2 % (1.0-6.0); HEMATOCRIT 45.2 % (41-53); HEMOGLOBIN 15.3 g/dL (13.5-17.5); LYMPHOCYTES # (AUTO) 2.3 K/uL (1.0-4.8); LYMPHOCYTES % (AUTO) 29.2 % (22.0-44.0); MEAN CORPUSCULAR HGB CONC 33.9 G/dL (31.0-37.0); MEAN CORPUSCULAR VOLUME 89 fL (80-100); MONOCYTES # (AUTO) 0.5 K/uL (0.1-1.0); MONOCYTES % (AUTO) 6.5 % (2.0-9.0); NEUTROPHILS # (AUTO) 4.8 K/uL (1.8-7.7); NEUTROPHILS % (AUTO) 60.6 % (40.0-70.0); PLATELET COUNT (AUTO) 197 K/uL (150-450); RED BLOOD CELL COUNT(AUTO) 5.11 MIL/uL (4.50-5.90); RED CELL DISTRIBUTION WIDTH 13.5 % (11.5-14.5); WHITE BLOOD COUNT (AUTO) 7.8 K/uL (4.5-11.0)
[2023-02-14 21:20] LABS: ANION GAP 5 mmol/L (8-16); CALCIUM, TOTAL 9.4 mg/dL (8.8-10.5); CARBON DIOXIDE 31 mmol/L (22-29); CHLORIDE 103 mmol/L (98-107); CREATININE 1.06 mg/dL (0.60-1.30); GLOMERULAR FILTR. RATE CALC > 60 mL/min (>60); GLUCOSE,RANDOM 99 mg/dL (70-110); POTASSIUM 4.3 mmol/L (3.5-5.1); SODIUM SERUM 139 mmol/L (136-145); UREA NITROGEN, BLOOD 17 mg/dL (7-18)
[2023-02-14 21:26] LABS: ALANINE AMINOTRANSFERASE 35 U/L (12-78); ALKALINE PHOSPHATASE 91 U/L (46-116); ASPARTATE AMINOTRANSFERASE 12 U/L (15-37); BILIRUBIN,TOTAL 0.3 mg/dL (0.1-1.0); TOTAL PROTEIN, SERUM 7.9 g/dL (6.4-8.2)
[2023-02-14 21:34] LABS: COVID AG,FIA SOURCE NASOPHARYNGEAL
[2023-02-14 21:43] LABS: ALCOHOL, BLOOD (SERUM) < 3 mg/dL (0-10)
[2023-02-14 21:58] LABS: INFLUENZA TYPE A NEGATIVE FOR TYPE A (NEGATIVE); INFLUENZA TYPE B NEGATIVE FOR TYPE B (NEGATIVE); SARS-COV2 (COVID) ANTIGEN,FIA Negative (Negative)
[2023-02-15 00:41] VITALS: BP 125/65; PULSE 88; RESP 18
== END 2023-02-15 00:44 | disposition home or self-care (01) ==
LOC: EMS 18:56
DX: M54.9 Dorsalgia, unspecified (principal); F20.9 Schizophrenia, unspecified; L73.9 Follicular disorder, unspecified; Z20.822 Contact with and (suspected) exposure to COVID-19
CPT/HCPCS: 99283; 96360; 87426; 80053; 85025; 87804; 36415; G0480

== ENCOUNTER 2023-06-21 18:55 | Emergency (ER) | payer OTHER ==
[~2023-06-21] VITALS: Ht 175.3 cm; Wt 104.5 kg
[2023-06-21 19:03] VITALS: TEMP 98.6
[2023-06-21 22:30] VITALS: BP 118/74; PULSE 88; RESP 16
== END 2023-06-21 23:03 | disposition still patient (30) ==
LOC: EMS 18:57
DX: H66.42 Suppurative otitis media, unspecified, left ear (principal); F20.9 Schizophrenia, unspecified
CPT/HCPCS: 99281; Z7502

== ENCOUNTER 2023-08-03 19:08 | Emergency (ER) | payer OTHER ==
[~2023-08-03] VITALS: Ht 172.7 cm; Wt 109.1 kg
[2023-08-03] MEDS: IBUPROFEN 600 MG TABLET PO ONE (23:02)
[2023-08-03] MEDS: METHOCARBAMOL 500 MG TABLET PO ONE (23:02)
[2023-08-03] MEDS ORDERED: METH-659 PO (23:57)
[2023-08-03] MEDS ORDERED: IBUP-1492 PO (23:57)
[2023-08-04 00:24] VITALS: BP 124/88; PULSE 72; RESP 16; TEMP 98.3
== END 2023-08-04 00:24 | disposition home or self-care (01) ==
LOC: EMS 19:12
DX: M54.50 Low back pain, unspecified (principal); R51.9 Headache, unspecified; F20.9 Schizophrenia, unspecified
CPT/HCPCS: 99283

== ENCOUNTER 2023-08-09 17:47 | Emergency (ER) | payer OTHER ==
[~2023-08-09] VITALS: Ht 175.3 cm; Wt 109.0 kg
[~2023-08-09 17:47] MED LIST changes: +IBUP-1492 PO; +METH-659 PO
[2023-08-09] MEDS ORDERED: AMOX1TAB16 PO (18:49)
[2023-08-09] MEDS: RABIES VACCINE, HUMAN DIPLOID/PF 2.5 UNITS/ML VIAL IM. ONE (19:38)
[2023-08-09] MEDS: AMOX TR/POT CLAV 875 MG/125 MG TABLET PO ONE (19:42)
[2023-08-09] MEDS: BACITRACIN 0.9 GM PACKET OINTMENT TP ONE (19:42)
[2023-08-09] MEDS: RABIES IMMUNE GLOBULIN/PF 150 UNIT/ML 10 ML VIAL IM. ONE (19:44)
[2023-08-09] MEDS: PERTUSS(ACELL),DIPH,TET/PF 0.5 ML SYRINGE [ADULT] IM. ONE (19:45)
[2023-08-09 21:13] VITALS: BP 112/72; PULSE 78; RESP 16; TEMP 98
== END 2023-08-09 21:13 | disposition home or self-care (01) ==
LOC: EMS 17:52
DX: S81.851A Open bite, right lower leg, initial encounter (principal); F20.9 Schizophrenia, unspecified; W54.0XXA Bitten by dog, initial encounter; Y93.89 Activity, other specified; Y92.89 Other specified places as the place of occurrence of the external cause; Y99.8 Other external cause status
CPT/HCPCS: 90375; 90471; 90472; 90675; 90715; 96372; 99284

== ENCOUNTER 2023-08-13 18:37 | Emergency (ER) | payer OTHER ==
[~2023-08-13] VITALS: Ht 172.7 cm; Wt 90.9 kg
[~2023-08-13 18:37] MED LIST changes: +AMOX1TAB16 PO
[2023-08-13 18:50] LABS: COVID AG,FIA SOURCE NASAL SWAB
[2023-08-13 19:30] LABS: INFLUENZA TYPE A NEGATIVE FOR TYPE A (NEGATIVE); INFLUENZA TYPE B NEGATIVE FOR TYPE B (NEGATIVE); SARS-COV2 (COVID) ANTIGEN,FIA Negative (Negative)
[2023-08-13] MEDS: GuaiFENesin/D-METHORPHAN [SUGAR-FREE] 200-20MG/10 ML SYRUP UDCUP PO ONE (19:46)
[2023-08-13] MEDS ORDERED: GUAIFDM PO (19:53)
[2023-08-13 20:11] VITALS: BP 115/62; PULSE 74; RESP 18; TEMP 98.3
== END 2023-08-13 20:47 | disposition home or self-care (01) ==
LOC: EMS 18:37
DX: J06.9 Acute upper respiratory infection, unspecified (principal); F25.9 Schizoaffective disorder, unspecified; Z20.822 Contact with and (suspected) exposure to COVID-19
CPT/HCPCS: 87804; 99283

== ENCOUNTER 2023-10-01 23:17 | Emergency (ER) | payer OTHER ==
[~2023-10-01] VITALS: Ht 172.7 cm; Wt 106.8 kg
[~2023-10-01 23:17] MED LIST changes: +AMOX-457 PO; -AMOX1TAB16 PO; +GUAIFDM PO
[2023-10-01 23:31] VITALS: TEMP 98.1
[2023-10-02 00:08] LABS: BASOPHILS % (AUTO) 0.7 % (0.0-2.0); EOSINOPHILS % (AUTO) 2.5 % (1.0-6.0); HEMATOCRIT 45.9 % (41-53); HEMOGLOBIN 15.3 g/dL (13.5-17.5); LYMPHOCYTES # (AUTO) 2.8 K/uL (1.0-4.8); MEAN CORPUSCULAR HEMOGLOBIN 29.9 pg (26.0-34.0); MEAN CORPUSCULAR HGB CONC 33.5 G/dL (31.0-37.0); MEAN CORPUSCULAR VOLUME 89 fL (80-100); MONOCYTES # (AUTO) 0.7 K/uL (0.1-1.0); MONOCYTES % (AUTO) 7.9 % (2.0-9.0); NEUTROPHILS # (AUTO) 5.2 K/uL (1.8-7.7); NEUTROPHILS % (AUTO) 57.9 % (40.0-70.0); PLATELET COUNT (AUTO) 187 K/uL (150-450); RED BLOOD CELL COUNT(AUTO) 5.14 MIL/uL (4.50-5.90); RED CELL DISTRIBUTION WIDTH 13.6 % (11.5-14.5)
[2023-10-02 00:15] LABS: ANION GAP 2 mmol/L (8-16); CARBON DIOXIDE 34 mmol/L (22-29); CHLORIDE 103 mmol/L (98-107); CREATININE 0.97 mg/dL (0.60-1.30); GLUCOSE,RANDOM 115 mg/dL (70-110); SODIUM SERUM 139 mmol/L (136-145); UREA NITROGEN, BLOOD 11 mg/dL (7-18)
[2023-10-02 00:16] LABS: CALCIUM, TOTAL 9.3 mg/dL (8.8-10.5); GLOMERULAR FILTR. RATE CALC > 60 mL/min (>60)
[2023-10-02 00:22] LABS: ALANINE AMINOTRANSFERASE 37 U/L (12-78); ALKALINE PHOSPHATASE 91 U/L (46-116); ASPARTATE AMINOTRANSFERASE 14 U/L (15-37); BILIRUBIN,TOTAL 0.4 mg/dL (0.1-1.0); LIPASE 34 U/L (16-77)
[2023-10-02 01:46] LABS: APPEARANCE,URINE CLEAR (CLEAR); BILIRUBIN,URINE NEGATIVE (NEGATIVE); COLOR,URINE LIGHT YELLOW (YELLOW); GLUCOSE, URINE (UA) NEGATIVE (NEGATIVE); KETONES,URINE NEGATIVE (NEGATIVE); LEUKOCYTE ESTERASE ,URINE NEGATIVE (NEGATIVE); NITRATE,URINE NEGATIVE (NEGATIVE); OCCULT BLOOD,URINE NEGATIVE (NEGATIVE); PH,URINE 6.5 (5.0-8.0); PROTEIN,URINE NEGATIVE (NEGATIVE); SPECIFIC GRAVITIY, URINE 1.012 (1.003-1.030); UROBILINOGEN,URINE <=1.0 mg/dL (<=1.0)
[2023-10-02] MEDS: PB/HYOSCY/ATR/SCOP/LIDO/MAALOX 55 ML BOTTLE PO ONE (02:42)
[2023-10-02] MEDS: CLINDAMYCIN PHOS 150 MG/ML 4 ML VIAL IM ONE (02:55)
[2023-10-02 03:29] VITALS: BP 113/75; PULSE 62; RESP 16
[2023-10-02] MEDS ORDERED: OMEP20 PO (04:29)
[2023-10-02] MEDS ORDERED: POLY17PO62 PO (04:29)
[2023-10-02] MEDS ORDERED: CLIN-142 PO (04:29)
== END 2023-10-02 04:54 | disposition home or self-care (01) ==
LOC: EMS 23:17
DX: K29.70 Gastritis, unspecified, without bleeding (principal); L73.9 Follicular disorder, unspecified; K59.00 Constipation, unspecified; R10.13 Epigastric pain
CPT/HCPCS: 99284; 80053; 81003; 83690; 85025; 36415; 74022; 96372; J3490

== ENCOUNTER 2023-11-10 10:36 | Emergency (ER) | payer OTHER ==
[~2023-11-10] VITALS: Ht 172.7 cm; Wt 106.8 kg
[~2023-11-10 10:36] MED LIST changes: +CLIN-142 PO; +OMEP20 PO; +POLY17PO62 PO
[2023-11-10] MEDS: IBUPROFEN 600 MG TABLET PO ONE (12:33)
[2023-11-10 12:50] LABS: BASOPHILS % (AUTO) 0.4 % (0.0-2.0); EOSINOPHILS % (AUTO) 2.7 % (1.0-6.0); HEMATOCRIT 49.3 % (41-53); HEMOGLOBIN 16.3 g/dL (13.5-17.5); LYMPHOCYTES # (AUTO) 2.1 K/uL (1.0-4.8); LYMPHOCYTES % (AUTO) 33.3 % (22.0-44.0); MEAN CORPUSCULAR HEMOGLOBIN 29.7 pg (26.0-34.0); MEAN CORPUSCULAR HGB CONC 33.1 G/dL (31.0-37.0); MEAN CORPUSCULAR VOLUME 90 fL (80-100); MONOCYTES # (AUTO) 0.4 K/uL (0.1-1.0); MONOCYTES % (AUTO) 6.5 % (2.0-9.0); NEUTROPHILS # (AUTO) 3.6 K/uL (1.8-7.7); NEUTROPHILS % (AUTO) 57.1 % (40.0-70.0); PLATELET COUNT (AUTO) 195 K/uL (150-450); RED BLOOD CELL COUNT(AUTO) 5.51 MIL/uL (4.50-5.90); RED CELL DISTRIBUTION WIDTH 13.9 % (11.5-14.5); WHITE BLOOD COUNT (AUTO) 6.4 K/uL (4.5-11.0)
[2023-11-10 12:59] LABS: ANION GAP 7 mmol/L (8-16); CALCIUM, TOTAL 8.7 mg/dL (8.8-10.5); CARBON DIOXIDE 30 mmol/L (22-29); CHLORIDE 102 mmol/L (98-107); CREATININE 0.89 mg/dL (0.60-1.30); GLOMERULAR FILTR. RATE CALC > 60 mL/min (>60); GLUCOSE,RANDOM 89 mg/dL (70-110); POTASSIUM 4.1 mmol/L (3.5-5.1); SODIUM SERUM 139 mmol/L (136-145); UREA NITROGEN, BLOOD 7 mg/dL (7-18)
[2023-11-10 13:08] LABS: TROPONIN I-HIGH SENSITIVITY Less Than 4 ng/L (<76)
[2023-11-10 13:21] VITALS: BP 112/68; PULSE 76; RESP 16; TEMP 98.2
[2023-11-10] MEDS ORDERED: IBUP-1492 PO (13:22)
== END 2023-11-10 13:42 | disposition home or self-care (01) ==
LOC: EMS 10:36
DX: M79.622 Pain in left upper arm (principal); R07.9 Chest pain, unspecified
CPT/HCPCS: 71045; 80048; 84484; 85025; 93005; 99285; 36415-L1; 36415-TC

== ENCOUNTER 2023-11-27 14:46 | Emergency (ER) | payer OTHER ==
[~2023-11-27] VITALS: Ht 165.1 cm; Wt 86.4 kg
[~2023-11-27 14:46] MED LIST changes: -ACET-3385 PO; -AMOX-457 PO; -CLIN-142 PO; -GUAIFDM PO; -METH-659 PO; -OMEP20 PO; -POLY17PO62 PO
[2023-11-27 14:53] VITALS: BP 120/68; PULSE 81; RESP 18; TEMP 98
[2023-11-27] MEDS ORDERED: BACTDSB PO (18:02)
== END 2023-11-27 18:12 | disposition home or self-care (01) ==
LOC: EMS 14:46
DX: N49.2 Inflammatory disorders of scrotum (principal); F20.9 Schizophrenia, unspecified
CPT/HCPCS: 99283; Z7502

== ENCOUNTER 2023-12-04 14:33 | Emergency (ER) | payer OTHER ==
[~2023-12-04] VITALS: Ht 167.6 cm; Wt 95.5 kg
[~2023-12-04 14:33] MED LIST changes: +BACTDSB PO
[2023-12-04 14:41] VITALS: TEMP 98
[2023-12-04 17:10] LABS: APPEARANCE,URINE CLEAR (CLEAR); BILIRUBIN,URINE NEGATIVE (NEGATIVE); COLOR,URINE LIGHT YELLOW (YELLOW); GLUCOSE, URINE (UA) NEGATIVE (NEGATIVE); KETONES,URINE NEGATIVE (NEGATIVE); LEUKOCYTE ESTERASE ,URINE NEGATIVE (NEGATIVE); NITRATE,URINE NEGATIVE (NEGATIVE); OCCULT BLOOD,URINE NEGATIVE (NEGATIVE); PH,URINE 6.5 (5.0-8.0); PROTEIN,URINE NEGATIVE (NEGATIVE); SPECIFIC GRAVITIY, URINE 1.012 (1.003-1.030); UROBILINOGEN,URINE <=1.0 mg/dL (<=1.0)
[2023-12-04 17:15] LABS: BACTERIA,URINE None Seen /HPF (None Seen); RBC,URINE None Seen /HPF (0-2); WBC,URINE None Seen /HPF (0-5)
[2023-12-04] MEDS ORDERED: CEPH-558 PO (17:22)
[2023-12-04 17:25] VITALS: BP 106/51; PULSE 77; RESP 18; O2SAT 99
[2023-12-04 17:35] LABS: COVID AG,FIA SOURCE NASAL SWAB
[2023-12-04 18:11] LABS: SARS-COV2 (COVID) ANTIGEN,FIA Negative (Negative)
== END 2023-12-04 18:03 | disposition home or self-care (01) ==
LOC: EMS 14:33
DX: L73.9 Follicular disorder, unspecified (principal); F20.9 Schizophrenia, unspecified; Z20.822 Contact with and (suspected) exposure to COVID-19
CPT/HCPCS: 81001; 99283

== ENCOUNTER 2023-12-06 20:18 | Emergency (ER) | payer OTHER ==
[~2023-12-06] VITALS: Ht 172.7 cm; Wt 106.8 kg
[~2023-12-06 20:18] MED LIST changes: +CEPH-558 PO
[2023-12-06 20:24] VITALS: TEMP 98.3
[2023-12-06 21:26] VITALS: BP 107/76; PULSE 89; RESP 16; O2SAT 97
[2023-12-06 21:40] LABS: BASOPHILS % (AUTO) 0.5 % (0.0-2.0); EOSINOPHILS % (AUTO) 2.5 % (1.0-6.0); HEMATOCRIT 43.9 % (41-53); HEMOGLOBIN 14.8 g/dL (13.5-17.5); LYMPHOCYTES # (AUTO) 2.6 K/uL (1.0-4.8); MEAN CORPUSCULAR HEMOGLOBIN 30.1 pg (26.0-34.0); MEAN CORPUSCULAR HGB CONC 33.8 G/dL (31.0-37.0); MEAN CORPUSCULAR VOLUME 89 fL (80-100); MONOCYTES # (AUTO) 0.5 K/uL (0.1-1.0); MONOCYTES % (AUTO) 5.8 % (2.0-9.0); NEUTROPHILS # (AUTO) 4.8 K/uL (1.8-7.7); NEUTROPHILS % (AUTO) 59.2 % (40.0-70.0); PLATELET COUNT (AUTO) 184 K/uL (150-450); RED BLOOD CELL COUNT(AUTO) 4.93 MIL/uL (4.50-5.90); RED CELL DISTRIBUTION WIDTH 13.6 % (11.5-14.5); WHITE BLOOD COUNT (AUTO) 8.1 K/uL (4.5-11.0)
[2023-12-06 21:50] LABS: ANION GAP 9 mmol/L (8-16); CALCIUM, TOTAL 8.3 mg/dL (8.8-10.5); CARBON DIOXIDE 28 mmol/L (22-29); CHLORIDE 102 mmol/L (98-107); CREATININE 1.11 mg/dL (0.60-1.30); GLOMERULAR FILTR. RATE CALC > 60 mL/min (>60); GLUCOSE,RANDOM 145 mg/dL (70-110); POTASSIUM 3.9 mmol/L (3.5-5.1); SODIUM SERUM 139 mmol/L (136-145); UREA NITROGEN, BLOOD 9 mg/dL (7-18)
[2023-12-06 21:55] LABS: TROPONIN I-HIGH SENSITIVITY 5 ng/L (<76)
== END 2023-12-07 00:26 | disposition home or self-care (01) ==
LOC: EMS 20:20
DX: R07.89 Other chest pain (principal); L73.9 Follicular disorder, unspecified; F20.9 Schizophrenia, unspecified
CPT/HCPCS: 71045; 80048; 84484; 85025; 93005; 99285; 36415-L1; 36415-TC

== ENCOUNTER 2023-12-28 14:18 | Emergency (ER) | payer OTHER ==
[~2023-12-28] VITALS: Ht 175.3 cm; Wt 90.0 kg
[2023-12-28 14:24] VITALS: BP 103/68; PULSE 68; RESP 18; TEMP 98.5; O2SAT 98
== END 2023-12-28 16:02 | disposition left against medical advice (07) ==
LOC: EMS 14:18
DX: R21 Rash and other nonspecific skin eruption (principal); Z53.21 Procedure and treatment not carried out due to patient leaving prior to being seen by health care provider

== ENCOUNTER 2024-01-02 16:11 | Emergency (ER) | payer OTHER ==
[~2024-01-02] VITALS: Ht 172.7 cm; Wt 106.8 kg
[2024-01-02 16:17] VITALS: BP 120/65; PULSE 87; RESP 18; TEMP 98.3; O2SAT 100
== END 2024-01-02 18:41 | disposition left against medical advice (07) ==
LOC: EMS 16:11
DX: M79.601 Pain in right arm (principal); M79.602 Pain in left arm; R10.9 Unspecified abdominal pain

== ENCOUNTER → 2024-01-09 | Emergency (ER) | payer OTHER ==
[~2024-01-09] VITALS: Ht 172.7 cm; Wt 106.8 kg
[2024-01-09 15:56] VITALS: TEMP 97.3
[2024-01-09 16:31] LABS: BASOPHILS % (AUTO) 0.5 % (0.0-2.0); EOSINOPHILS % (AUTO) 2.7 % (1.0-6.0); HEMOGLOBIN 15.7 g/dL (13.5-17.5); LYMPHOCYTES # (AUTO) 2.3 K/uL (1.0-4.8); LYMPHOCYTES % (AUTO) 28.4 % (22.0-44.0); MEAN CORPUSCULAR HEMOGLOBIN 30.2 pg (26.0-34.0); MEAN CORPUSCULAR VOLUME 89 fL (80-100); MONOCYTES # (AUTO) 0.4 K/uL (0.1-1.0); MONOCYTES % (AUTO) 5.4 % (2.0-9.0); PLATELET COUNT (AUTO) 205 K/uL (150-450); RED BLOOD CELL COUNT(AUTO) 5.18 MIL/uL (4.50-5.90); RED CELL DISTRIBUTION WIDTH 13.7 % (11.5-14.5)
[2024-01-09 16:41] LABS: ANION GAP 9 mmol/L (8-16); CALCIUM, TOTAL 8.5 mg/dL (8.8-10.5); CARBON DIOXIDE 29 mmol/L (22-29); CHLORIDE 101 mmol/L (98-107); CREATININE 0.95 mg/dL (0.60-1.30); GLOMERULAR FILTR. RATE CALC > 60 mL/min (>60); GLUCOSE,RANDOM 115 mg/dL (70-110); POTASSIUM 3.8 mmol/L (3.5-5.1); SODIUM SERUM 139 mmol/L (136-145); UREA NITROGEN, BLOOD 10 mg/dL (7-18)
[2024-01-09 16:55] LABS: TROPONIN I-HIGH SENSITIVITY Less Than 4 ng/L (<76)
[2024-01-09 17:46] VITALS: BP 126/76; PULSE 87; RESP 20; O2SAT 98
== END | disposition still patient (30) ==
LOC: EMS 15:41
DX: R07.89 Other chest pain (principal); F41.9 Anxiety disorder, unspecified; F20.9 Schizophrenia, unspecified
CPT/HCPCS: 71045; 80048; 84484; 85025; 93005; 99285; 36415-L1; 36415-TC

== ENCOUNTER 2024-01-16 21:04 | Emergency (ER) | payer OTHER ==
[~2024-01-16] VITALS: Ht 172.7 cm; Wt 106.8 kg
[2024-01-16 21:10] VITALS: BP 126/67; PULSE 111; RESP 20; TEMP 98.9; O2SAT 98
[2024-01-17] LABS: BASOPHILS % (AUTO) 0.6 % (0.0-2.0); EOSINOPHILS % (AUTO) 1.5 % (1.0-6.0); HEMATOCRIT 44.9 % (41-53); HEMOGLOBIN 15.1 g/dL (13.5-17.5); LYMPHOCYTES # (AUTO) 2.8 K/uL (1.0-4.8); LYMPHOCYTES % (AUTO) 30.2 % (22.0-44.0); MEAN CORPUSCULAR HEMOGLOBIN 29.9 pg (26.0-34.0); MEAN CORPUSCULAR HGB CONC 33.7 G/dL (31.0-37.0); MEAN CORPUSCULAR VOLUME 89 fL (80-100); MONOCYTES # (AUTO) 0.7 K/uL (0.1-1.0); MONOCYTES % (AUTO) 7.5 % (2.0-9.0); NEUTROPHILS # (AUTO) 5.6 K/uL (1.8-7.7); NEUTROPHILS % (AUTO) 60.2 % (40.0-70.0); PLATELET COUNT (AUTO) 200 K/uL (150-450); RED BLOOD CELL COUNT(AUTO) 5.05 MIL/uL (4.50-5.90); RED CELL DISTRIBUTION WIDTH 13.6 % (11.5-14.5); WHITE BLOOD COUNT (AUTO) 9.4 K/uL (4.5-11.0)
[2024-01-17 00:09] LABS: ANION GAP 8 mmol/L (8-16); CARBON DIOXIDE 31 mmol/L (22-29); CHLORIDE 100 mmol/L (98-107); GLOMERULAR FILTR. RATE CALC > 60 mL/min (>60); GLUCOSE,RANDOM 97 mg/dL (70-110); POTASSIUM 4.4 mmol/L (3.5-5.1); SODIUM SERUM 139 mmol/L (136-145); UREA NITROGEN, BLOOD 14 mg/dL (7-18)
[2024-01-17 00:18] LABS: ALCOHOL, BLOOD (SERUM) < 3 mg/dL (0-10)
[2024-01-17] MEDS ORDERED: TRAM50TA5 PO (01:36)
[2024-01-17] MEDS: TraMADol HCL 50 MG TABLET PO ONE (01:39)
[2024-01-17] MEDS: LORazepam 1 MG TABLET PO ONE (01:39)
== END 2024-01-17 02:07 | disposition home or self-care (01) ==
LOC: EMS 21:04
DX: F41.9 Anxiety disorder, unspecified (principal); M79.604 Pain in right leg; F20.9 Schizophrenia, unspecified; M54.50 Low back pain, unspecified
CPT/HCPCS: 99284; 80048; 85025; 36415; 93005; G0480

== ENCOUNTER 2024-01-21 21:43 | Emergency (ER) | payer OTHER ==
[~2024-01-21] VITALS: Ht 172.7 cm; Wt 106.8 kg
[~2024-01-21 21:43] MED LIST changes: -BACTDSB PO; -CEPH-558 PO; -IBUP-1492 PO; +TRAM50TA5 PO
[2024-01-21 21:50] VITALS: TEMP 98.5
[2024-01-21] MEDS ORDERED: CYCL-448 PO (21:55)
[2024-01-21] MEDS: TraMADol HCL 50 MG TABLET PO ONE (23:23)
[2024-01-21] MEDS: LIDOCAINE 5% TRANSDERMAL PATCH TD ONE (23:24)
[2024-01-21] MEDS: CLINDAMYCIN HCL 150 MG CAPSULE PO ONE (23:26)
[2024-01-22] MEDS ORDERED: LIDO700A15 TP (00:18)
[2024-01-22] MEDS ORDERED: CLIN-142 PO (00:18)
[2024-01-22 00:26] VITALS: BP 107/73; PULSE 95; RESP 16; O2SAT 98
== END 2024-01-22 00:28 | disposition home or self-care (01) ==
LOC: EMS 21:43
DX: L73.9 Follicular disorder, unspecified (principal); L03.314 Cellulitis of groin; M54.50 Low back pain, unspecified; F20.9 Schizophrenia, unspecified; F41.9 Anxiety disorder, unspecified
CPT/HCPCS: 72100; 99284; Z7502; Z7610

== ENCOUNTER 2024-02-17 20:12 | Emergency (ER) | payer OTHER ==
[~2024-02-17] VITALS: Ht 172.7 cm; Wt 106.4 kg
[~2024-02-17 20:12] MED LIST changes: +CLIN-142 PO; +CYCL-448 PO; +LIDO700A15 TP
[2024-02-17 20:20] VITALS: BP 128/79; PULSE 92; RESP 18; TEMP 98; O2SAT 98
== END 2024-02-17 21:00 | disposition left against medical advice (07) ==
LOC: EMS 20:12
DX: R22.33 Localized swelling, mass and lump, upper limb, bilateral (principal); Z53.21 Procedure and treatment not carried out due to patient leaving prior to being seen by health care provider

== ENCOUNTER 2024-02-24 15:42 | Emergency (ER) | payer OTHER ==
[~2024-02-24] VITALS: Ht 172.7 cm; Wt 106.8 kg
[2024-02-24 15:46] VITALS: BP 101/70; PULSE 88; RESP 18; TEMP 97.9; O2SAT 99
== END 2024-02-24 17:29 | disposition left against medical advice (07) ==
LOC: EMS 15:42
DX: R07.89 Other chest pain (principal); Z53.21 Procedure and treatment not carried out due to patient leaving prior to being seen by health care provider
CPT/HCPCS: 93005

== ENCOUNTER 2024-03-25 20:20 | Emergency (ER) | payer OTHER ==
[~2024-03-25] VITALS: Ht 172.7 cm; Wt 109.1 kg
[2024-03-25 20:24] VITALS: TEMP 98.4
[2024-03-25 21:19] LABS: ANION GAP 6 mmol/L (8-16); CALCIUM, TOTAL 8.5 mg/dL (8.8-10.5); CARBON DIOXIDE 32 mmol/L (22-29); CHLORIDE 102 mmol/L (98-107); CREATININE 1.04 mg/dL (0.60-1.30); GLOMERULAR FILTR. RATE CALC > 60 mL/min (>60); GLUCOSE,RANDOM 128 mg/dL (70-110); POTASSIUM 4.4 mmol/L (3.5-5.1); SODIUM SERUM 140 mmol/L (136-145); UREA NITROGEN, BLOOD 11 mg/dL (7-18)
[2024-03-25 21:20] LABS: LIPASE 40 U/L (16-77)
[2024-03-25 21:21] LABS: BASOPHILS % (AUTO) 0.5 % (0.0-2.0); EOSINOPHILS % (AUTO) 2.5 % (1.0-6.0); HEMOGLOBIN 15.9 g/dL (13.5-17.5); LYMPHOCYTES # (AUTO) 2.7 K/uL (1.0-4.8); LYMPHOCYTES % (AUTO) 28.6 % (22.0-44.0); MEAN CORPUSCULAR HEMOGLOBIN 30.3 pg (26.0-34.0); MEAN CORPUSCULAR HGB CONC 33.9 G/dL (31.0-37.0); MEAN CORPUSCULAR VOLUME 89 fL (80-100); MONOCYTES # (AUTO) 0.7 K/uL (0.1-1.0); MONOCYTES % (AUTO) 7.1 % (2.0-9.0); NEUTROPHILS # (AUTO) 5.9 K/uL (1.8-7.7); NEUTROPHILS % (AUTO) 61.3 % (40.0-70.0); PLATELET COUNT (AUTO) 194 K/uL (150-450); RED BLOOD CELL COUNT(AUTO) 5.27 MIL/uL (4.50-5.90); RED CELL DISTRIBUTION WIDTH 13.3 % (11.5-14.5); WHITE BLOOD COUNT (AUTO) 9.6 K/uL (4.5-11.0)
[2024-03-26 01:10] VITALS: BP 124/74; PULSE 82; RESP 17; O2SAT 99
[2024-03-26] MEDS ORDERED: HYDR-4808 PO (01:22)
== END 2024-03-26 01:39 | disposition home or self-care (01) ==
LOC: EMS 20:20
DX: F41.9 Anxiety disorder, unspecified (principal); R20.2 Paresthesia of skin; F20.9 Schizophrenia, unspecified
CPT/HCPCS: 80048; 83690; 85025; 99283

== ENCOUNTER 2024-04-07 19:15 | Emergency (ER) | payer OTHER ==
[~2024-04-07] VITALS: Ht 172.7 cm; Wt 106.8 kg
[~2024-04-07 19:15] MED LIST changes: -CLIN-142 PO; -CYCL-448 PO; +HYDR-4808 PO; -LIDO700A15 TP; -TRAM50TA5 PO
[2024-04-07 19:27] VITALS: TEMP 98.2
[2024-04-07] MEDS ORDERED: ROSU10TA72 PO (19:29)
[2024-04-07 20:13] LABS: BASOPHILS % (AUTO) 0.5 % (0.0-2.0); HEMATOCRIT 44.6 % (41-53); HEMOGLOBIN 15.2 g/dL (13.5-17.5); LYMPHOCYTES # (AUTO) 2.4 K/uL (1.0-4.8); LYMPHOCYTES % (AUTO) 30.7 % (22.0-44.0); MEAN CORPUSCULAR HGB CONC 34.1 G/dL (31.0-37.0); MEAN CORPUSCULAR VOLUME 88 fL (80-100); MONOCYTES # (AUTO) 0.6 K/uL (0.1-1.0); NEUTROPHILS # (AUTO) 4.6 K/uL (1.8-7.7); NEUTROPHILS % (AUTO) 58.8 % (40.0-70.0); PLATELET COUNT (AUTO) 185 K/uL (150-450); RED BLOOD CELL COUNT(AUTO) 5.08 MIL/uL (4.50-5.90); RED CELL DISTRIBUTION WIDTH 13.3 % (11.5-14.5); WHITE BLOOD COUNT (AUTO) 7.9 K/uL (4.5-11.0)
[2024-04-07 20:31] LABS: ANION GAP 7 mmol/L (8-16); CARBON DIOXIDE 31 mmol/L (22-29); CHLORIDE 101 mmol/L (98-107); POTASSIUM 4.2 mmol/L (3.5-5.1); SODIUM SERUM 139 mmol/L (136-145)
[2024-04-07 20:37] LABS: CALCIUM, TOTAL 8.9 mg/dL (8.8-10.5); CREATININE 0.99 mg/dL (0.60-1.30); GLOMERULAR FILTR. RATE CALC > 60 mL/min (>60); GLUCOSE,RANDOM 118 mg/dL (70-110); UREA NITROGEN, BLOOD 11 mg/dL (7-18)
[2024-04-07 20:43] LABS: TROPONIN I-HIGH SENSITIVITY Less Than 4 ng/L (<76)
[2024-04-07 21:09] VITALS: BP 109/77; PULSE 88; RESP 15; O2SAT 98
== END 2024-04-07 21:10 | disposition home or self-care (01) ==
LOC: EMS 19:15
DX: R07.89 Other chest pain (principal); F41.9 Anxiety disorder, unspecified; L70.9 Acne, unspecified; F20.9 Schizophrenia, unspecified
CPT/HCPCS: 80048; 84484; 85025; 93005; 99284

== ENCOUNTER 2024-04-08 21:32 | Emergency (ER) | payer OTHER ==
[~2024-04-08] VITALS: Ht 172.7 cm; Wt 106.8 kg
[~2024-04-08 21:32] MED LIST changes: +ROSU10TA72 PO
[2024-04-08 22:17] VITALS: BP 105/71; PULSE 73; RESP 16; TEMP 98; O2SAT 98
== END 2024-04-08 22:57 | disposition left against medical advice (07) ==
LOC: EMS 21:32
DX: M54.2 Cervicalgia (principal); R68.84 Jaw pain; Z53.21 Procedure and treatment not carried out due to patient leaving prior to being seen by health care provider

== ENCOUNTER 2024-04-11 22:44 | Emergency (ER) | payer OTHER ==
[~2024-04-11] VITALS: Ht 172.7 cm; Wt 106.8 kg
[2024-04-11 22:51] VITALS: BP 123/70; PULSE 83; RESP 18; TEMP 97.8; O2SAT 99
[2024-04-12 00:33] LABS: ALCOHOL, URINE DRUG SCREEN NEGATIVE (NEGATIVE); AMPHET/METH SCREEN,URINE NEGATIVE (NEGATIVE); BARBITURATE SCREEN, URINE NEGATIVE (NEGATIVE); BENZODIAZEPINES SCREEN,URINE NEGATIVE (NEGATIVE); CANNABINOID SCREEN,URINE NEGATIVE (NEGATIVE); COCAINE SCREEN,URINE NEGATIVE (NEGATIVE); METHADONE SCREEN, URINE NEGATIVE (NEGATIVE); OPIATE SCREEN,URINE NEGATIVE (NEGATIVE); PHENCYCLIDINE SCREEN,URINE NEGATIVE (NEGATIVE)
== END 2024-04-12 03:10 | disposition home or self-care (01) ==
LOC: EMS 22:44
DX: M79.662 Pain in left lower leg (principal); F41.9 Anxiety disorder, unspecified; F20.9 Schizophrenia, unspecified; Z79.899 Other long term (current) drug therapy
CPT/HCPCS: 80307; 99283

== ENCOUNTER → 2024-04-14 | Emergency (ER) | payer OTHER ==
[~2024-04-14] VITALS: Ht 160 cm; Wt 106.8 kg
[2024-04-14 21:26] VITALS: BP 112/62; PULSE 75; RESP 16; TEMP 97.8; O2SAT 98
== END | disposition still patient (30) ==
LOC: EMS 21:16
DX: L73.9 Follicular disorder, unspecified (principal); R21 Rash and other nonspecific skin eruption; F41.9 Anxiety disorder, unspecified; F20.9 Schizophrenia, unspecified
CPT/HCPCS: 99282; Z7502

== ENCOUNTER 2024-05-16 23:58 | Emergency (ER) | payer OTHER ==
[~2024-05-16] VITALS: Ht 165.1 cm; Wt 82.0 kg
[2024-05-17 00:54] VITALS: BP 110/59; PULSE 76; RESP 16; TEMP 98.2; O2SAT 100
== END 2024-05-17 00:54 | disposition left against medical advice (07) ==
LOC: EMS 05-17 00:01
DX: R23.8 Other skin changes (principal); Z53.21 Procedure and treatment not carried out due to patient leaving prior to being seen by health care provider

== ENCOUNTER 2024-06-01 17:48 | Emergency (ER) | payer OTHER ==
[~2024-06-01] VITALS: Ht 172.7 cm; Wt 106.8 kg
[2024-06-01 17:53] VITALS: BP 105/71; PULSE 84; RESP 18; TEMP 98; O2SAT 100
[2024-06-01] MEDS ORDERED: LORA1TAB25 PO (17:56)
[2024-06-01 18:15] LABS: BASOPHILS % (AUTO) 0.7 % (0.0-2.0); EOSINOPHILS % (AUTO) 2.1 % (1.0-6.0); HEMATOCRIT 46.5 % (41-53); HEMOGLOBIN 15.4 g/dL (13.5-17.5); LYMPHOCYTES # (AUTO) 2.6 K/uL (1.0-4.8); LYMPHOCYTES % (AUTO) 28.9 % (22.0-44.0); MEAN CORPUSCULAR HEMOGLOBIN 29.6 pg (26.0-34.0); MEAN CORPUSCULAR HGB CONC 33.2 G/dL (31.0-37.0); MEAN CORPUSCULAR VOLUME 89 fL (80-100); MONOCYTES # (AUTO) 0.5 K/uL (0.1-1.0); MONOCYTES % (AUTO) 5.5 % (2.0-9.0); NEUTROPHILS # (AUTO) 5.7 K/uL (1.8-7.7); NEUTROPHILS % (AUTO) 62.8 % (40.0-70.0); PLATELET COUNT (AUTO) 211 K/uL (150-450); RED BLOOD CELL COUNT(AUTO) 5.22 MIL/uL (4.50-5.90); RED CELL DISTRIBUTION WIDTH 13.5 % (11.5-14.5); WHITE BLOOD COUNT (AUTO) 9.2 K/uL (4.5-11.0)
[2024-06-01 18:24] LABS: ANION GAP 7 mmol/L (8-16); CALCIUM, TOTAL 8.7 mg/dL (8.8-10.5); CARBON DIOXIDE 32 mmol/L (22-29); CHLORIDE 103 mmol/L (98-107); GLOMERULAR FILTR. RATE CALC > 60 mL/min (>60); GLUCOSE,RANDOM 117 mg/dL (70-110); SODIUM SERUM 142 mmol/L (136-145); UREA NITROGEN, BLOOD 6 mg/dL (7-18)
[2024-06-01 18:37] LABS: ALCOHOL, BLOOD (SERUM) < 3 mg/dL (0-10)
[2024-06-01 19:00] LABS: APPEARANCE,URINE CLEAR (CLEAR); BILIRUBIN,URINE NEGATIVE (NEGATIVE); COLOR,URINE COLORLESS (YELLOW); GLUCOSE, URINE (UA) NEGATIVE (NEGATIVE); KETONES,URINE NEGATIVE (NEGATIVE); LEUKOCYTE ESTERASE ,URINE NEGATIVE (NEGATIVE); NITRATE,URINE NEGATIVE (NEGATIVE); OCCULT BLOOD,URINE NEGATIVE (NEGATIVE); PROTEIN,URINE NEGATIVE (NEGATIVE); SPECIFIC GRAVITIY, URINE 1.006 (1.003-1.030); UROBILINOGEN,URINE <=1.0 mg/dL (<=1.0)
[2024-06-01 19:08] LABS: AMPHET/METH SCREEN,URINE NEGATIVE (NEGATIVE); BARBITURATE SCREEN, URINE NEGATIVE (NEGATIVE); BENZODIAZEPINES SCREEN,URINE NEGATIVE (NEGATIVE); CANNABINOID SCREEN,URINE NEGATIVE (NEGATIVE); COCAINE SCREEN,URINE NEGATIVE (NEGATIVE); METHADONE SCREEN, URINE NEGATIVE (NEGATIVE); OPIATE SCREEN,URINE NEGATIVE (NEGATIVE); PHENCYCLIDINE SCREEN,URINE NEGATIVE (NEGATIVE)
[2024-06-01 19:09] LABS: ALCOHOL, URINE DRUG SCREEN NEGATIVE (NEGATIVE)
[2024-06-01] MEDS ORDERED: HYDR-4808 PO (19:29)
[2024-06-01] MEDS ORDERED: ERGO500093 PO (19:32)
[2024-06-01] MEDS: LORazepam 1 MG TABLET PO ONE (19:42)
== END 2024-06-01 19:51 | disposition home or self-care (01) ==
LOC: EMS 17:48
DX: F41.0 Panic disorder [episodic paroxysmal anxiety] (principal); F25.9 Schizoaffective disorder, unspecified; Z79.899 Other long term (current) drug therapy
CPT/HCPCS: 99283; 80048; 85025; 80307; G0480

== ENCOUNTER 2024-06-02 19:49 | Emergency (ER) | payer OTHER ==
[~2024-06-02] VITALS: Ht 172.7 cm; Wt 104.5 kg
[~2024-06-02 19:49] MED LIST changes: +ERGO500093 PO; +LORA1TAB25 PO; -ROSU10TA72 PO
[2024-06-02 19:53] VITALS: TEMP 97.9
[2024-06-02] MEDS: LORazepam 1 MG TABLET PO ONE (20:11)
[2024-06-02 20:15] VITALS: BP 114/69; PULSE 91; RESP 17; O2SAT 98
== END 2024-06-02 20:50 | disposition home or self-care (01) ==
LOC: EMS 19:54
DX: F41.9 Anxiety disorder, unspecified (principal); F20.9 Schizophrenia, unspecified
CPT/HCPCS: 99283

== ENCOUNTER 2024-06-03 22:26 | Emergency (ER) | payer OTHER ==
[~2024-06-03] VITALS: Ht 175.3 cm; Wt 90.0 kg
[2024-06-03 22:33] VITALS: TEMP 98
[2024-06-03 23:19] LABS: BASOPHILS % (AUTO) 0.7 % (0.0-2.0); HEMATOCRIT 50.6 % (41-53); HEMOGLOBIN 16.7 g/dL (13.5-17.5); LYMPHOCYTES # (AUTO) 2.7 K/uL (1.0-4.8); LYMPHOCYTES % (AUTO) 31.4 % (22.0-44.0); MEAN CORPUSCULAR HEMOGLOBIN 29.5 pg (26.0-34.0); MEAN CORPUSCULAR VOLUME 89 fL (80-100); MONOCYTES # (AUTO) 0.4 K/uL (0.1-1.0); MONOCYTES % (AUTO) 4.8 % (2.0-9.0); NEUTROPHILS # (AUTO) 5.4 K/uL (1.8-7.7); NEUTROPHILS % (AUTO) 62.1 % (40.0-70.0); PLATELET COUNT (AUTO) 241 K/uL (150-450); RED BLOOD CELL COUNT(AUTO) 5.68 MIL/uL (4.50-5.90); RED CELL DISTRIBUTION WIDTH 13.6 % (11.5-14.5); WHITE BLOOD COUNT (AUTO) 8.7 K/uL (4.5-11.0)
[2024-06-03 23:21] LABS: ANION GAP 8 mmol/L (8-16); CALCIUM, TOTAL 8.6 mg/dL (8.8-10.5); CARBON DIOXIDE 30 mmol/L (22-29); CHLORIDE 103 mmol/L (98-107); CREATININE 0.89 mg/dL (0.60-1.30); GLOMERULAR FILTR. RATE CALC > 60 mL/min (>60); GLUCOSE,RANDOM 131 mg/dL (70-110); POTASSIUM 4.1 mmol/L (3.5-5.1); SODIUM SERUM 141 mmol/L (136-145); UREA NITROGEN, BLOOD 5 mg/dL (7-18)
[2024-06-03 23:28] LABS: ALCOHOL, BLOOD (SERUM) 265 mg/dL (0-10)
[2024-06-04 02:06] LABS: COVID AG,FIA SOURCE NASAL SWAB
[2024-06-04 02:21] LABS: PH,URINE DRUG SCREEN 5.5 (5.0-8.0)
[2024-06-04 02:30] LABS: ALCOHOL, URINE DRUG SCREEN POSITIVE (NEGATIVE); AMPHET/METH SCREEN,URINE NEGATIVE (NEGATIVE); BARBITURATE SCREEN, URINE NEGATIVE (NEGATIVE); BENZODIAZEPINES SCREEN,URINE NEGATIVE (NEGATIVE); CANNABINOID SCREEN,URINE NEGATIVE (NEGATIVE); COCAINE SCREEN,URINE NEGATIVE (NEGATIVE); METHADONE SCREEN, URINE NEGATIVE (NEGATIVE); OPIATE SCREEN,URINE NEGATIVE (NEGATIVE); PHENCYCLIDINE SCREEN,URINE NEGATIVE (NEGATIVE)
[2024-06-04 02:35] LABS: SARS-COV2 (COVID) ANTIGEN,FIA Negative (Negative)
[2024-06-04 02:36] VITALS: BP 130/77; PULSE 117; RESP 20; O2SAT 99
== END 2024-06-04 06:53 | disposition home or self-care (01) ==
LOC: EMS 22:26
DX: F10.129 Alcohol abuse with intoxication, unspecified (principal); F20.9 Schizophrenia, unspecified; R44.0 Auditory hallucinations; F41.9 Anxiety disorder, unspecified; Z20.822 Contact with and (suspected) exposure to COVID-19; Y90.9 Presence of alcohol in blood, level not specified
CPT/HCPCS: 99283; 87426; 80048; 85025; 36415; 80307; G0480

== ENCOUNTER 2024-06-21 04:09 | Emergency (ER) | payer OTHER ==
[~2024-06-21] VITALS: Ht 177.8 cm; Wt 100.0 kg
[2024-06-21 04:32] VITALS: BP 122/63; PULSE 76; RESP 16; TEMP 97.9; O2SAT 100
== END 2024-06-21 04:51 | disposition left against medical advice (07) ==
LOC: EMS 04:10
DX: F41.9 Anxiety disorder, unspecified (principal); F20.9 Schizophrenia, unspecified; Z53.21 Procedure and treatment not carried out due to patient leaving prior to being seen by health care provider
CPT/HCPCS: 93005

== ENCOUNTER 2024-07-01 15:33 | Emergency (ER) | payer OTHER ==
[~2024-07-01] VITALS: Ht 172.7 cm; Wt 106.8 kg
[2024-07-01 15:37] VITALS: TEMP 98.5
[2024-07-01] MEDS ORDERED: ROSU10TA72 PO (15:46)
[2024-07-01] MEDS ORDERED: HYDR-4527 PO (15:46)
[2024-07-01 17:05] VITALS: BP 128/80; PULSE 94; RESP 18; O2SAT 98
[2024-07-01] MEDS: ACETAMINOPHEN 500 MG TABLET PO ONE (18:38)
== END 2024-07-01 19:05 | disposition home or self-care (01) ==
LOC: EMS 15:33
DX: F10.129 Alcohol abuse with intoxication, unspecified (principal); L73.1 Pseudofolliculitis barbae; F41.9 Anxiety disorder, unspecified; F20.9 Schizophrenia, unspecified; F31.9 Bipolar disorder, unspecified; Z79.899 Other long term (current) drug therapy; Y90.9 Presence of alcohol in blood, level not specified
CPT/HCPCS: 99282; Z7502; Z7610

== ENCOUNTER 2024-07-24 22:22 | Emergency (ER) | payer OTHER ==
[~2024-07-24] VITALS: Ht 172.7 cm; Wt 106.8 kg
[~2024-07-24 22:22] MED LIST changes: -ERGO500093 PO; +HYDR-4527 PO; -HYDR-4808 PO; -LORA1TAB25 PO; +ROSU10TA72 PO
[2024-07-24 22:29] VITALS: BP 114/84; PULSE 98; RESP 20; TEMP 97.9; O2SAT 98
== END 2024-07-25 02:54 | disposition home or self-care (01) ==
LOC: EMS 22:25
DX: F15.10 Other stimulant abuse, uncomplicated (principal); F41.9 Anxiety disorder, unspecified; F20.9 Schizophrenia, unspecified; Z79.899 Other long term (current) drug therapy
CPT/HCPCS: 99282; Z7502

== ENCOUNTER 2024-07-26 23:51 | Emergency (ER) | payer OTHER ==
[~2024-07-26] VITALS: Ht 172.7 cm; Wt 106.8 kg
[2024-07-27 00:10] VITALS: BP 121/90; PULSE 115; RESP 18; TEMP 98.2; O2SAT 99
[2024-07-27 00:54] LABS: ANION GAP 7 mmol/L (8-16); CARBON DIOXIDE 30 mmol/L (22-29); CHLORIDE 98 mmol/L (98-107); CREATININE 0.94 mg/dL (0.60-1.30); GLOMERULAR FILTR. RATE CALC > 60 mL/min (>60); GLUCOSE,RANDOM 101 mg/dL (70-110); POTASSIUM 3.9 mmol/L (3.5-5.1); SODIUM SERUM 135 mmol/L (136-145); UREA NITROGEN, BLOOD 8 mg/dL (7-18)
[2024-07-27 00:58] LABS: BASOPHILS % (AUTO) 0.7 % (0.0-2.0); EOSINOPHILS % (AUTO) 0.4 % (1.0-6.0); HEMATOCRIT 48.2 % (41-53); HEMOGLOBIN 16.5 g/dL (13.5-17.5); LYMPHOCYTES # (AUTO) 2.6 K/uL (1.0-4.8); LYMPHOCYTES % (AUTO) 28.5 % (22.0-44.0); MEAN CORPUSCULAR HEMOGLOBIN 30.6 pg (26.0-34.0); MEAN CORPUSCULAR HGB CONC 34.2 G/dL (31.0-37.0); MEAN CORPUSCULAR VOLUME 90 fL (80-100); MONOCYTES # (AUTO) 0.6 K/uL (0.1-1.0); MONOCYTES % (AUTO) 7.2 % (2.0-9.0); NEUTROPHILS # (AUTO) 5.7 K/uL (1.8-7.7); NEUTROPHILS % (AUTO) 63.2 % (40.0-70.0); PLATELET COUNT (AUTO) 219 K/uL (150-450); RED BLOOD CELL COUNT(AUTO) 5.39 MIL/uL (4.50-5.90); RED CELL DISTRIBUTION WIDTH 13.7 % (11.5-14.5)
[2024-07-27] MEDS: LORazepam 2 MG TABLET PO ONE (01:01)
[2024-07-27] MEDS: HydrOXYzine PAMOATE 50 MG CAPSULE PO ONE (01:01)
[2024-07-27 01:03] LABS: AMPHET/METH SCREEN,URINE POSITIVE (NEGATIVE); BARBITURATE SCREEN, URINE NEGATIVE (NEGATIVE); BENZODIAZEPINES SCREEN,URINE NEGATIVE (NEGATIVE); CANNABINOID SCREEN,URINE NEGATIVE (NEGATIVE); COCAINE SCREEN,URINE NEGATIVE (NEGATIVE); METHADONE SCREEN, URINE NEGATIVE (NEGATIVE); OPIATE SCREEN,URINE NEGATIVE (NEGATIVE); PHENCYCLIDINE SCREEN,URINE NEGATIVE (NEGATIVE)
[2024-07-27 01:06] LABS: ALCOHOL, URINE DRUG SCREEN NEGATIVE (NEGATIVE)
== END 2024-07-27 02:38 | disposition home or self-care (01) ==
LOC: EMS 23:52
DX: F41.0 Panic disorder [episodic paroxysmal anxiety] (principal); F15.10 Other stimulant abuse, uncomplicated; F20.9 Schizophrenia, unspecified; R51.9 Headache, unspecified
CPT/HCPCS: 80048; 80307; 85025; 99283

== ENCOUNTER 2024-07-31 17:25 | Emergency (ER) | payer OTHER ==
[~2024-07-31] VITALS: Ht 172.7 cm; Wt 109.1 kg
[2024-07-31 17:50] VITALS: TEMP 98
[2024-07-31] MEDS: MAG HYDROX/ALUMINUM HYD/SIMETH ES 30 ML SUSPENSION UDCUP PO ONE (18:42)
[2024-07-31 19:00] LABS: ANION GAP 2 mmol/L (8-16); CARBON DIOXIDE 32 mmol/L (22-29); CHLORIDE 103 mmol/L (98-107); CREATININE 0.89 mg/dL (0.60-1.30); GLOMERULAR FILTR. RATE CALC > 60 mL/min (>60); GLUCOSE,RANDOM 98 mg/dL (70-110); LIPASE 31 U/L (16-77); POTASSIUM 4.5 mmol/L (3.5-5.1); SODIUM SERUM 137 mmol/L (136-145); UREA NITROGEN, BLOOD 6 mg/dL (7-18)
[2024-07-31 19:02] LABS: BASOPHILS % (AUTO) 0.5 % (0.0-2.0); EOSINOPHILS % (AUTO) 2.3 % (1.0-6.0); HEMATOCRIT 47.1 % (41-53); HEMOGLOBIN 15.6 g/dL (13.5-17.5); LYMPHOCYTES # (AUTO) 1.8 K/uL (1.0-4.8); LYMPHOCYTES % (AUTO) 23.1 % (22.0-44.0); MEAN CORPUSCULAR HEMOGLOBIN 29.7 pg (26.0-34.0); MEAN CORPUSCULAR HGB CONC 33.2 G/dL (31.0-37.0); MEAN CORPUSCULAR VOLUME 90 fL (80-100); MONOCYTES # (AUTO) 0.6 K/uL (0.1-1.0); MONOCYTES % (AUTO) 7.3 % (2.0-9.0); NEUTROPHILS # (AUTO) 5.2 K/uL (1.8-7.7); NEUTROPHILS % (AUTO) 66.8 % (40.0-70.0); PLATELET COUNT (AUTO) 205 K/uL (150-450); RED BLOOD CELL COUNT(AUTO) 5.25 MIL/uL (4.50-5.90); RED CELL DISTRIBUTION WIDTH 13.8 % (11.5-14.5); WHITE BLOOD COUNT (AUTO) 7.8 K/uL (4.5-11.0)
[2024-07-31 20:22] VITALS: BP 108/79; PULSE 79; RESP 16; O2SAT 98
== END 2024-07-31 21:05 | disposition home or self-care (01) ==
LOC: EMS 17:34
DX: R10.13 Epigastric pain (principal); R06.02 Shortness of breath; F41.9 Anxiety disorder, unspecified; E78.00 Pure hypercholesterolemia, unspecified; F15.10 Other stimulant abuse, uncomplicated; F20.9 Schizophrenia, unspecified
CPT/HCPCS: 80048; 83690; 85025; 99283

== ENCOUNTER 2024-08-03 22:43 | Emergency (ER) | payer OTHER ==
[~2024-08-03] VITALS: Ht 172.7 cm; Wt 109.0 kg
[2024-08-03 22:45] VITALS: BP 110/82; PULSE 80; RESP 16; TEMP 98.2; O2SAT 100
[2024-08-04] MEDS ORDERED: HYDR-4808 PO (00:40)
[2024-08-04] MEDS: HydrOXYzine PAMOATE 25 MG CAPSULE PO ONE (01:00)
== END 2024-08-04 01:00 | disposition home or self-care (01) ==
LOC: EMS 22:44
DX: F41.0 Panic disorder [episodic paroxysmal anxiety] (principal); F25.9 Schizoaffective disorder, unspecified; E78.00 Pure hypercholesterolemia, unspecified; F31.9 Bipolar disorder, unspecified
CPT/HCPCS: 99283

== ENCOUNTER 2024-08-12 18:02 | Emergency (ER) | payer OTHER ==
[~2024-08-12] VITALS: Ht 175.3 cm; Wt 109.0 kg
[~2024-08-12 18:02] MED LIST changes: +HYDR-4808 PO
[2024-08-12 18:12] VITALS: BP 122/89; PULSE 74; RESP 16; TEMP 97.3; O2SAT 96
[2024-08-12 19:18] LABS: APPEARANCE,URINE CLEAR (CLEAR); BILIRUBIN,URINE NEGATIVE (NEGATIVE); COLOR,URINE LIGHT YELLOW (YELLOW); GLUCOSE, URINE (UA) NEGATIVE (NEGATIVE); KETONES,URINE NEGATIVE (NEGATIVE); LEUKOCYTE ESTERASE ,URINE NEGATIVE (NEGATIVE); NITRATE,URINE NEGATIVE (NEGATIVE); OCCULT BLOOD,URINE NEGATIVE (NEGATIVE); PROTEIN,URINE NEGATIVE (NEGATIVE); SPECIFIC GRAVITIY, URINE 1.013 (1.003-1.030); UROBILINOGEN,URINE <=1.0 mg/dL (<=1.0)
[2024-08-12 19:21] LABS: BASOPHILS % (AUTO) 0.6 % (0.0-2.0); EOSINOPHILS % (AUTO) 3.3 % (1.0-6.0); HEMATOCRIT 45.2 % (41-53); HEMOGLOBIN 15.5 g/dL (13.5-17.5); LYMPHOCYTES # (AUTO) 2.4 K/uL (1.0-4.8); LYMPHOCYTES % (AUTO) 28.2 % (22.0-44.0); MEAN CORPUSCULAR HEMOGLOBIN 29.9 pg (26.0-34.0); MEAN CORPUSCULAR HGB CONC 34.2 G/dL (31.0-37.0); MEAN CORPUSCULAR VOLUME 88 fL (80-100); MONOCYTES # (AUTO) 0.6 K/uL (0.1-1.0); MONOCYTES % (AUTO) 6.4 % (2.0-9.0); NEUTROPHILS # (AUTO) 5.3 K/uL (1.8-7.7); NEUTROPHILS % (AUTO) 61.5 % (40.0-70.0); PLATELET COUNT (AUTO) 193 K/uL (150-450); RED BLOOD CELL COUNT(AUTO) 5.17 MIL/uL (4.50-5.90); RED CELL DISTRIBUTION WIDTH 13.7 % (11.5-14.5); WHITE BLOOD COUNT (AUTO) 8.6 K/uL (4.5-11.0)
[2024-08-12 19:24] LABS: ANION GAP 5 mmol/L (8-16); CALCIUM, TOTAL 8.5 mg/dL (8.8-10.5); CARBON DIOXIDE 32 mmol/L (22-29); CHLORIDE 103 mmol/L (98-107); CREATININE 1.16 mg/dL (0.60-1.30); GLOMERULAR FILTR. RATE CALC > 60 mL/min (>60); GLUCOSE,RANDOM 138 mg/dL (70-110); LIPASE 38 U/L (16-77); POTASSIUM 4.1 mmol/L (3.5-5.1); SODIUM SERUM 140 mmol/L (136-145); UREA NITROGEN, BLOOD 11 mg/dL (7-18)
== END 2024-08-12 19:57 | disposition home or self-care (01) ==
LOC: EMS 18:02
DX: R10.9 Unspecified abdominal pain (principal); E78.00 Pure hypercholesterolemia, unspecified; F31.9 Bipolar disorder, unspecified; F20.9 Schizophrenia, unspecified
CPT/HCPCS: 80048; 81003; 83690; 85025; 93005; 99284

== ENCOUNTER 2024-08-15 18:30 | Emergency (ER) | payer OTHER | END 2024-08-15 19:36 | disposition left against medical advice (07) | LOC: EMS 18:30 | DX: F41.9 Anxiety disorder, unspecified (principal); Z53.21 Procedure and treatment not carried out due to patient leaving prior to being seen by health care provider ==

== ENCOUNTER 2024-08-16 19:46 | Emergency (ER) | payer OTHER ==
[~2024-08-16] VITALS: Ht 172.7 cm; Wt 109.1 kg
[2024-08-16 20:07] VITALS: BP 105/63; PULSE 78; RESP 18; TEMP 98.4; O2SAT 100
[2024-08-18] MEDS ORDERED: CLIN-26 PO (22:23)
== END 2024-08-17 00:58 | disposition left against medical advice (07) ==
LOC: EMS 19:53
DX: L70.0 Acne vulgaris (principal); Z53.21 Procedure and treatment not carried out due to patient leaving prior to being seen by health care provider

== ENCOUNTER 2024-08-18 19:13 | Emergency (ER) | payer OTHER ==
[2024-08-18] MEDS: IBUPROFEN 600 MG TABLET PO ONE (20:49)
[2024-08-18] MEDS: clindamycin HCL 150 MG CAPSULE PO ONE (21:58)
[2024-08-18] MEDS ORDERED: CLIN-26 PO (22:23)
[2024-08-18 22:24] VITALS: BP 129/68; PULSE 71; RESP 16; TEMP 97.9; O2SAT 98
== END 2024-08-18 22:31 | disposition home or self-care (01) ==
LOC: EMS 19:14
DX: L02.212 Cutaneous abscess of back [any part, except buttock and flank] (principal); E78.00 Pure hypercholesterolemia, unspecified; F20.9 Schizophrenia, unspecified; F31.9 Bipolar disorder, unspecified; F41.9 Anxiety disorder, unspecified; F10.90 Alcohol use, unspecified, uncomplicated; F15.10 Other stimulant abuse, uncomplicated; Y90.9 Presence of alcohol in blood, level not specified
CPT/HCPCS: 99283

== ENCOUNTER 2024-08-26 21:11 | Emergency (ER) | payer OTHER ==
[~2024-08-26] VITALS: Ht 175.3 cm; Wt 109.1 kg
[~2024-08-26 21:11] MED LIST changes: +CLIN-26 PO
[2024-08-26 21:53] VITALS: BP 114/71; PULSE 65; RESP 16; TEMP 98.6; O2SAT 96
[2024-08-26 22:19] LABS: BASOPHILS % (AUTO) 0.4 % (0.0-2.0); EOSINOPHILS % (AUTO) 2.1 % (1.0-6.0); HEMATOCRIT 45.3 % (41-53); HEMOGLOBIN 15.2 g/dL (13.5-17.5); LYMPHOCYTES # (AUTO) 2.3 K/uL (1.0-4.8); LYMPHOCYTES % (AUTO) 29.3 % (22.0-44.0); MEAN CORPUSCULAR HEMOGLOBIN 29.7 pg (26.0-34.0); MEAN CORPUSCULAR HGB CONC 33.6 G/dL (31.0-37.0); MEAN CORPUSCULAR VOLUME 88 fL (80-100); MONOCYTES # (AUTO) 0.6 K/uL (0.1-1.0); MONOCYTES % (AUTO) 7.8 % (2.0-9.0); NEUTROPHILS # (AUTO) 4.7 K/uL (1.8-7.7); NEUTROPHILS % (AUTO) 60.4 % (40.0-70.0); PLATELET COUNT (AUTO) 195 K/uL (150-450); RED BLOOD CELL COUNT(AUTO) 5.13 MIL/uL (4.50-5.90); RED CELL DISTRIBUTION WIDTH 13.7 % (11.5-14.5); WHITE BLOOD COUNT (AUTO) 7.8 K/uL (4.5-11.0)
[2024-08-26 22:28] LABS: ANION GAP 10 mmol/L (8-16); CALCIUM, TOTAL 8.9 mg/dL (8.8-10.5); CARBON DIOXIDE 28 mmol/L (22-29); CHLORIDE 99 mmol/L (98-107); CREATININE 0.97 mg/dL (0.60-1.30); GLOMERULAR FILTR. RATE CALC > 60 mL/min (>60); GLUCOSE,RANDOM 95 mg/dL (70-110); POTASSIUM 3.8 mmol/L (3.5-5.1); SODIUM SERUM 137 mmol/L (136-145); UREA NITROGEN, BLOOD 10 mg/dL (7-18)
[2024-08-26 22:33] LABS: ALBUMIN 3.8 g/dL (3.4-5.0); BILIRUBIN,DIRECT 0.1 mg/dL (0.00-0.20); BILIRUBIN,TOTAL 0.4 mg/dL (0.1-1.0); TOTAL PROTEIN, SERUM 7.5 g/dL (6.4-8.2)
[2024-08-26 22:39] LABS: TROPONIN I-HIGH SENSITIVITY 4 ng/L (<76)
== END 2024-08-27 03:34 | disposition home or self-care (01) ==
LOC: EMS 21:11
DX: R07.89 Other chest pain (principal); E78.00 Pure hypercholesterolemia, unspecified; F20.9 Schizophrenia, unspecified; F31.9 Bipolar disorder, unspecified; F41.9 Anxiety disorder, unspecified; F15.10 Other stimulant abuse, uncomplicated; F10.90 Alcohol use, unspecified, uncomplicated; Y90.9 Presence of alcohol in blood, level not specified
CPT/HCPCS: 71045; 80048; 80076; 84484; 85025; 93005; 99285; 36415-L1; 36415-TC

== ENCOUNTER 2024-09-03 15:50 | Emergency (ER) | payer OTHER ==
[~2024-09-03] VITALS: Ht 175.3 cm; Wt 109.0 kg
[~2024-09-03 15:50] MED LIST changes: -CLIN-26 PO; +CLIN300C58 PO; -HYDR-4527 PO
[2024-09-03 16:05] VITALS: TEMP 97.9
[2024-09-03 16:45] LABS: BASOPHILS % (AUTO) 0.8 % (0.0-2.0); HEMATOCRIT 46.8 % (41-53); HEMOGLOBIN 15.8 g/dL (13.5-17.5); LYMPHOCYTES # (AUTO) 2.1 K/uL (1.0-4.8); LYMPHOCYTES % (AUTO) 28.6 % (22.0-44.0); MEAN CORPUSCULAR HEMOGLOBIN 29.5 pg (26.0-34.0); MEAN CORPUSCULAR HGB CONC 33.7 G/dL (31.0-37.0); MEAN CORPUSCULAR VOLUME 88 fL (80-100); MONOCYTES # (AUTO) 0.6 K/uL (0.1-1.0); MONOCYTES % (AUTO) 8.1 % (2.0-9.0); NEUTROPHILS # (AUTO) 4.3 K/uL (1.8-7.7); NEUTROPHILS % (AUTO) 59.5 % (40.0-70.0); PLATELET COUNT (AUTO) 196 K/uL (150-450); RED BLOOD CELL COUNT(AUTO) 5.34 MIL/uL (4.50-5.90); RED CELL DISTRIBUTION WIDTH 13.7 % (11.5-14.5); WHITE BLOOD COUNT (AUTO) 7.3 K/uL (4.5-11.0)
[2024-09-03 16:54] LABS: ANION GAP 5 mmol/L (8-16); CALCIUM, TOTAL 8.6 mg/dL (8.8-10.5); CARBON DIOXIDE 31 mmol/L (22-29); CHLORIDE 105 mmol/L (98-107); CREATININE 1.03 mg/dL (0.60-1.30); GLOMERULAR FILTR. RATE CALC > 60 mL/min (>60); GLUCOSE,RANDOM 116 mg/dL (70-110); POTASSIUM 3.9 mmol/L (3.5-5.1); SODIUM SERUM 141 mmol/L (136-145); UREA NITROGEN, BLOOD 8 mg/dL (7-18)
[2024-09-03 17:05] LABS: TROPONIN I-HIGH SENSITIVITY Less Than 4 ng/L (<76)
[2024-09-03 19:03] VITALS: BP 125/65; PULSE 82; RESP 16; O2SAT 99
== END 2024-09-03 19:06 | disposition home or self-care (01) ==
LOC: EMS 15:52
DX: R07.89 Other chest pain (principal); E78.00 Pure hypercholesterolemia, unspecified; F41.9 Anxiety disorder, unspecified; F31.9 Bipolar disorder, unspecified; F20.9 Schizophrenia, unspecified; F15.10 Other stimulant abuse, uncomplicated; F10.90 Alcohol use, unspecified, uncomplicated; Y90.9 Presence of alcohol in blood, level not specified
CPT/HCPCS: 80048; 84484; 85025; 93005; 99284

== ENCOUNTER 2024-09-04 16:55 | Emergency (ER) | payer OTHER ==
[~2024-09-04] VITALS: Ht 175.3 cm; Wt 109.1 kg
[2024-09-04 16:56] VITALS: BP 103/68; PULSE 92; RESP 18; TEMP 97.9; O2SAT 100
== END 2024-09-04 22:25 | disposition left against medical advice (07) ==
LOC: EMS 16:55
DX: L08.9 Local infection of the skin and subcutaneous tissue, unspecified (principal); Z53.21 Procedure and treatment not carried out due to patient leaving prior to being seen by health care provider

== ENCOUNTER 2024-09-08 19:42 | Emergency (ER) | payer OTHER ==
[~2024-09-08] VITALS: Ht 175.3 cm; Wt 109.0 kg
[2024-09-08 20:07] LABS: BASOPHILS % (AUTO) 0.6 % (0.0-2.0); EOSINOPHILS % (AUTO) 1.6 % (1.0-6.0); HEMATOCRIT 46.5 % (41-53); HEMOGLOBIN 15.6 g/dL (13.5-17.5); LYMPHOCYTES % (AUTO) 23.6 % (22.0-44.0); MEAN CORPUSCULAR HEMOGLOBIN 29.2 pg (26.0-34.0); MEAN CORPUSCULAR HGB CONC 33.4 G/dL (31.0-37.0); MEAN CORPUSCULAR VOLUME 87 fL (80-100); MONOCYTES # (AUTO) 0.4 K/uL (0.1-1.0); MONOCYTES % (AUTO) 5.4 % (2.0-9.0); NEUTROPHILS # (AUTO) 5.7 K/uL (1.8-7.7); NEUTROPHILS % (AUTO) 68.8 % (40.0-70.0); PLATELET COUNT (AUTO) 192 K/uL (150-450); RED BLOOD CELL COUNT(AUTO) 5.33 MIL/uL (4.50-5.90); RED CELL DISTRIBUTION WIDTH 13.5 % (11.5-14.5); WHITE BLOOD COUNT (AUTO) 8.3 K/uL (4.5-11.0)
[2024-09-08 20:12] LABS: ANION GAP 9 mmol/L (8-16); CALCIUM, TOTAL 8.8 mg/dL (8.8-10.5); CARBON DIOXIDE 31 mmol/L (22-29); CHLORIDE 101 mmol/L (98-107); CREATININE 1.02 mg/dL (0.60-1.30); GLOMERULAR FILTR. RATE CALC > 60 mL/min (>60); GLUCOSE,RANDOM 170 mg/dL (70-110); SODIUM SERUM 141 mmol/L (136-145); UREA NITROGEN, BLOOD 7 mg/dL (7-18)
[2024-09-08 21:12] LABS: APPEARANCE,URINE CLEAR (CLEAR); BILIRUBIN,URINE NEGATIVE (NEGATIVE); COLOR,URINE LIGHT YELLOW (YELLOW); GLUCOSE, URINE (UA) NEGATIVE (NEGATIVE); KETONES,URINE NEGATIVE (NEGATIVE); LEUKOCYTE ESTERASE ,URINE NEGATIVE (NEGATIVE); NITRATE,URINE NEGATIVE (NEGATIVE); OCCULT BLOOD,URINE NEGATIVE (NEGATIVE); PH,URINE 6.5 (5.0-8.0); PROTEIN,URINE NEGATIVE (NEGATIVE); SPECIFIC GRAVITIY, URINE 1.014 (1.003-1.030); UROBILINOGEN,URINE <=1.0 mg/dL (<=1.0)
[2024-09-08 21:21] LABS: ALBUMIN 3.5 g/dL (3.4-5.0); BILIRUBIN,DIRECT 0.2 mg/dL (0.00-0.20); BILIRUBIN,TOTAL 0.7 mg/dL (0.1-1.0); TOTAL PROTEIN, SERUM 6.9 g/dL (6.4-8.2)
[2024-09-08] MEDS: DICYCLOMINE HCL 10 MG CAPSULE PO ONE (22:15)
[2024-09-08] MEDS: ACETAMINOPHEN 500 MG TABLET PO ONE (22:16)
[2024-09-08] MEDS ORDERED: POLY119P3 PO (22:43)
[2024-09-08 23:04] VITALS: BP 129/77; PULSE 88; RESP 16; TEMP 98.3; O2SAT 100
[2024-09-10] MEDS ORDERED: TRET20CR TP (11:42)
[2024-09-10] MEDS ORDERED: FLUT100B IH (11:42)
== END 2024-09-09 00:25 | disposition home or self-care (01) ==
LOC: EMS 19:42
DX: K59.00 Constipation, unspecified (principal); E78.00 Pure hypercholesterolemia, unspecified; F20.9 Schizophrenia, unspecified; F31.9 Bipolar disorder, unspecified; I10 Essential (primary) hypertension; F41.9 Anxiety disorder, unspecified; F15.90 Other stimulant use, unspecified, uncomplicated; F10.90 Alcohol use, unspecified, uncomplicated; Y90.9 Presence of alcohol in blood, level not specified
CPT/HCPCS: 74018; 80048; 80076; 81003; 83690; 85025; 99284; 36415-L1; 36415-TC

== ENCOUNTER 2024-09-10 11:13 | Emergency (ER) | payer OTHER ==
[~2024-09-10] VITALS: Ht 175.3 cm; Wt 109.1 kg
[~2024-09-10 11:13] MED LIST changes: -CLIN300C58 PO; -HYDR-4808 PO; +POLY119P3 PO; -ROSU10TA72 PO
[2024-09-10] MEDS ORDERED: ROSU10TA72 PO (11:42)
[2024-09-10] MEDS ORDERED: TRET20CR TP (11:42)
[2024-09-10] MEDS ORDERED: FLUT100B IH (11:42)
[2024-09-10] MEDS: HydrOXYzine HCL 10 MG TABLET PO ONE (11:56)
[2024-09-10 13:13] LABS: BASOPHILS % (AUTO) 0.6 % (0.0-2.0); EOSINOPHILS % (AUTO) 1.9 % (1.0-6.0); HEMOGLOBIN 16.7 g/dL (13.5-17.5); LYMPHOCYTES # (AUTO) 1.6 K/uL (1.0-4.8); LYMPHOCYTES % (AUTO) 22.5 % (22.0-44.0); MEAN CORPUSCULAR HEMOGLOBIN 29.2 pg (26.0-34.0); MEAN CORPUSCULAR HGB CONC 33.4 G/dL (31.0-37.0); MEAN CORPUSCULAR VOLUME 87 fL (80-100); MONOCYTES # (AUTO) 0.5 K/uL (0.1-1.0); MONOCYTES % (AUTO) 6.4 % (2.0-9.0); NEUTROPHILS % (AUTO) 68.6 % (40.0-70.0); PLATELET COUNT (AUTO) 204 K/uL (150-450); RED BLOOD CELL COUNT(AUTO) 5.72 MIL/uL (4.50-5.90); RED CELL DISTRIBUTION WIDTH 13.7 % (11.5-14.5); WHITE BLOOD COUNT (AUTO) 7.3 K/uL (4.5-11.0)
[2024-09-10 13:26] LABS: ANION GAP 9 mmol/L (8-16); CALCIUM, TOTAL 8.9 mg/dL (8.8-10.5); CARBON DIOXIDE 28 mmol/L (22-29); CHLORIDE 101 mmol/L (98-107); CREATININE 0.88 mg/dL (0.60-1.30); GLOMERULAR FILTR. RATE CALC > 60 mL/min (>60); GLUCOSE,RANDOM 91 mg/dL (70-110); POTASSIUM 3.9 mmol/L (3.5-5.1); SODIUM SERUM 138 mmol/L (136-145); UREA NITROGEN, BLOOD 6 mg/dL (7-18)
[2024-09-10 13:30] LABS: BILIRUBIN,DIRECT 0.1 mg/dL (0.00-0.20); BILIRUBIN,TOTAL 0.5 mg/dL (0.1-1.0)
[2024-09-10 13:34] LABS: APPEARANCE,URINE CLEAR (CLEAR); BILIRUBIN,URINE NEGATIVE (NEGATIVE); COLOR,URINE LIGHT YELLOW (YELLOW); GLUCOSE, URINE (UA) NEGATIVE (NEGATIVE); KETONES,URINE NEGATIVE (NEGATIVE); LEUKOCYTE ESTERASE ,URINE NEGATIVE (NEGATIVE); NITRATE,URINE NEGATIVE (NEGATIVE); OCCULT BLOOD,URINE NEGATIVE (NEGATIVE); PH,URINE 7.5 (5.0-8.0); PROTEIN,URINE NEGATIVE (NEGATIVE); SPECIFIC GRAVITIY, URINE 1.014 (1.003-1.030); UROBILINOGEN,URINE <=1.0 mg/dL (<=1.0)
[2024-09-10 14:00] VITALS: BP 125/79; PULSE 94; RESP 17; O2SAT 99
[2024-09-10] MEDS: MAG HYDROX/ALUMINUM HYD/SIMETH 30 ML SUSPENSION UDCUP PO ONE (14:28)
== END 2024-09-10 14:39 | disposition home or self-care (01) ==
LOC: EMS 11:17
DX: F41.9 Anxiety disorder, unspecified (principal); K21.9 Gastro-esophageal reflux disease without esophagitis; R10.12 Left upper quadrant pain; E78.00 Pure hypercholesterolemia, unspecified; F31.9 Bipolar disorder, unspecified; F20.9 Schizophrenia, unspecified; F15.10 Other stimulant abuse, uncomplicated; F10.90 Alcohol use, unspecified, uncomplicated; Y90.9 Presence of alcohol in blood, level not specified
CPT/HCPCS: 80048; 80076; 81003; 83690; 85025; 99283

== ENCOUNTER 2024-09-11 22:45 | Emergency (ER) | payer OTHER ==
[~2024-09-11] VITALS: Ht 175.3 cm; Wt 109.1 kg
[~2024-09-11 22:45] MED LIST changes: +FLUT100B IH; +ROSU10TA72 PO; +TRET20CR TP
[2024-09-11 23:11] LABS: BASOPHILS % (AUTO) 0.4 % (0.0-2.0); EOSINOPHILS % (AUTO) 3.3 % (1.0-6.0); HEMATOCRIT 46.7 % (41-53); HEMOGLOBIN 15.7 g/dL (13.5-17.5); LYMPHOCYTES # (AUTO) 2.5 K/uL (1.0-4.8); LYMPHOCYTES % (AUTO) 29.9 % (22.0-44.0); MEAN CORPUSCULAR HEMOGLOBIN 29.5 pg (26.0-34.0); MEAN CORPUSCULAR HGB CONC 33.6 G/dL (31.0-37.0); MEAN CORPUSCULAR VOLUME 88 fL (80-100); MONOCYTES # (AUTO) 0.6 K/uL (0.1-1.0); MONOCYTES % (AUTO) 7.7 % (2.0-9.0); NEUTROPHILS # (AUTO) 4.8 K/uL (1.8-7.7); NEUTROPHILS % (AUTO) 58.7 % (40.0-70.0); PLATELET COUNT (AUTO) 185 K/uL (150-450); RED BLOOD CELL COUNT(AUTO) 5.32 MIL/uL (4.50-5.90); RED CELL DISTRIBUTION WIDTH 13.4 % (11.5-14.5); WHITE BLOOD COUNT (AUTO) 8.2 K/uL (4.5-11.0)
[2024-09-11 23:20] LABS: ANION GAP 6 mmol/L (8-16); CALCIUM, TOTAL 8.9 mg/dL (8.8-10.5); CARBON DIOXIDE 33 mmol/L (22-29); CHLORIDE 99 mmol/L (98-107); CREATININE 1.11 mg/dL (0.60-1.30); GLOMERULAR FILTR. RATE CALC > 60 mL/min (>60); GLUCOSE,RANDOM 107 mg/dL (70-110); POTASSIUM 4.1 mmol/L (3.5-5.1); SODIUM SERUM 138 mmol/L (136-145); UREA NITROGEN, BLOOD 9 mg/dL (7-18)
[2024-09-12 01:30] VITALS: BP 110/76; PULSE 83; RESP 18; TEMP 98.2; O2SAT 98
[2024-09-12] MEDS ORDERED: POLY119P3 PO (02:33)
== END 2024-09-12 02:52 | disposition home or self-care (01) ==
LOC: EMS 23:37
DX: R10.32 Left lower quadrant pain (principal); K59.00 Constipation, unspecified; F20.9 Schizophrenia, unspecified; E78.00 Pure hypercholesterolemia, unspecified; F31.9 Bipolar disorder, unspecified; F41.9 Anxiety disorder, unspecified; F10.90 Alcohol use, unspecified, uncomplicated; F15.90 Other stimulant use, unspecified, uncomplicated; Z79.899 Other long term (current) drug therapy; Y90.9 Presence of alcohol in blood, level not specified
CPT/HCPCS: 74018; 80048; 83690; 85025; 99284; 36415-L1; 36415-TC

== ENCOUNTER 2024-09-18 14:42 | Emergency (ER) | payer OTHER ==
[~2024-09-18] VITALS: Ht 175.3 cm; Wt 109.1 kg
[~2024-09-18 14:42] MED LIST changes: +CEPH-558 PO; +SULF-261 PO; +VALA100026 PO
[2024-09-18 14:47] VITALS: TEMP 97.9
[2024-09-18 17:51] LABS: BASOPHILS % (AUTO) 0.4 % (0.0-2.0); EOSINOPHILS % (AUTO) 1.4 % (1.0-6.0); HEMATOCRIT 46.4 % (41-53); HEMOGLOBIN 15.7 g/dL (13.5-17.5); LYMPHOCYTES # (AUTO) 2.3 K/uL (1.0-4.8); LYMPHOCYTES % (AUTO) 25.7 % (22.0-44.0); MEAN CORPUSCULAR HEMOGLOBIN 29.6 pg (26.0-34.0); MEAN CORPUSCULAR HGB CONC 33.9 G/dL (31.0-37.0); MEAN CORPUSCULAR VOLUME 87 fL (80-100); MONOCYTES # (AUTO) 0.5 K/uL (0.1-1.0); MONOCYTES % (AUTO) 6.1 % (2.0-9.0); NEUTROPHILS # (AUTO) 5.9 K/uL (1.8-7.7); NEUTROPHILS % (AUTO) 66.4 % (40.0-70.0); PLATELET COUNT (AUTO) 218 K/uL (150-450); RED BLOOD CELL COUNT(AUTO) 5.31 MIL/uL (4.50-5.90); RED CELL DISTRIBUTION WIDTH 13.6 % (11.5-14.5); WHITE BLOOD COUNT (AUTO) 8.8 K/uL (4.5-11.0)
[2024-09-18 17:58] LABS: ANION GAP 6 mmol/L (8-16); CALCIUM, TOTAL 8.4 mg/dL (8.8-10.5); CARBON DIOXIDE 29 mmol/L (22-29); CHLORIDE 100 mmol/L (98-107); CREATININE 0.95 mg/dL (0.60-1.30); GLOMERULAR FILTR. RATE CALC > 60 mL/min (>60); GLUCOSE,RANDOM 94 mg/dL (70-110); POTASSIUM 3.7 mmol/L (3.5-5.1); SODIUM SERUM 135 mmol/L (136-145); UREA NITROGEN, BLOOD 7 mg/dL (7-18)
[2024-09-18 17:59] LABS: LIPASE 25 U/L (16-77)
[2024-09-18] MEDS: OMEPRAZOLE 20 MG CAPSULE PO ONE (18:01)
[2024-09-18] MEDS: ACETAMINOPHEN 500 MG TABLET PO ONE (18:01)
[2024-09-18] MEDS: ONDANSETRON HCL 4 MG/2 ML VIAL IM ONE (18:02)
[2024-09-18 18:05] LABS: ALCOHOL, BLOOD (SERUM) < 3 mg/dL (0-10)
[2024-09-18 18:07] LABS: TROPONIN I-HIGH SENSITIVITY 4 ng/L (<76)
[2024-09-18 18:25] LABS: PH,URINE DRUG SCREEN 6.5 (5.0-8.0)
[2024-09-18 18:30] VITALS: BP 142/78; PULSE 82; RESP 16; O2SAT 98
[2024-09-18 18:32] LABS: AMPHET/METH SCREEN,URINE NEGATIVE (NEGATIVE); BARBITURATE SCREEN, URINE NEGATIVE (NEGATIVE); BENZODIAZEPINES SCREEN,URINE NEGATIVE (NEGATIVE); CANNABINOID SCREEN,URINE NEGATIVE (NEGATIVE); COCAINE SCREEN,URINE NEGATIVE (NEGATIVE); METHADONE SCREEN, URINE NEGATIVE (NEGATIVE); OPIATE SCREEN,URINE NEGATIVE (NEGATIVE); PHENCYCLIDINE SCREEN,URINE NEGATIVE (NEGATIVE)
[2024-09-18 18:33] LABS: ALCOHOL, URINE DRUG SCREEN NEGATIVE (NEGATIVE)
[2024-09-18] MEDS: MAG HYDROX/ALUMINUM HYD/SIMETH ES 30 ML SUSPENSION UDCUP PO ONE (19:24)
== END 2024-09-18 19:34 | disposition home or self-care (01) ==
LOC: EMS 14:44
DX: F41.0 Panic disorder [episodic paroxysmal anxiety] (principal); F25.9 Schizoaffective disorder, unspecified; F10.10 Alcohol abuse, uncomplicated; F31.9 Bipolar disorder, unspecified; E78.00 Pure hypercholesterolemia, unspecified; F15.90 Other stimulant use, unspecified, uncomplicated; Y90.9 Presence of alcohol in blood, level not specified
CPT/HCPCS: 99284; 80048; 83690; 84484; 85025; 36415; 96372; 80307; G0480; J2405

== ENCOUNTER 2024-09-19 21:53 | Emergency (ER) | payer OTHER ==
[~2024-09-19] VITALS: Ht 175.3 cm; Wt 109.1 kg
[2024-09-19 22:05] VITALS: BP 124/78; PULSE 81; RESP 16; TEMP 97.9; O2SAT 100
[2024-09-19] MEDS: LORATADINE 10 MG TABLET PO ONE (23:05)
[2024-09-19] MEDS: NAPHAZOLINE/PHENIR 0.025-0.3% 15 ML OPHTHALMIC SOLUTION OS ONE (23:07)
== END 2024-09-20 00:29 | disposition home or self-care (01) ==
LOC: EMS 21:53
DX: H10.12 Acute atopic conjunctivitis, left eye (principal); R06.7 Sneezing; F41.9 Anxiety disorder, unspecified; F31.9 Bipolar disorder, unspecified; E78.00 Pure hypercholesterolemia, unspecified; F20.9 Schizophrenia, unspecified; F15.90 Other stimulant use, unspecified, uncomplicated; F10.90 Alcohol use, unspecified, uncomplicated; Y90.9 Presence of alcohol in blood, level not specified
CPT/HCPCS: 99283

== ENCOUNTER 2024-09-26 19:09 | Emergency (ER) | payer OTHER | END 2024-09-26 20:56 | disposition left against medical advice (07) | LOC: EMS 19:09 | DX: Z76.0 Encounter for issue of repeat prescription (principal); Z53.21 Procedure and treatment not carried out due to patient leaving prior to being seen by health care provider | CPT/HCPCS: 99281; Z7502 ==

== ENCOUNTER 2024-09-28 18:19 | Emergency (ER) | payer OTHER ==
[~2024-09-28] VITALS: Ht 172.7 cm; Wt 108.0 kg
[2024-09-28 18:31] VITALS: BP 120/90; PULSE 110; RESP 18; TEMP 98.1; O2SAT 100
[2024-09-28] MEDS ORDERED: HYDR-4808 PO (20:43)
[2024-09-28] MEDS ORDERED: CLOT113C TP (20:43)
== END 2024-09-28 20:52 | disposition home or self-care (01) ==
LOC: EMS 18:19
DX: F41.9 Anxiety disorder, unspecified (principal); F10.129 Alcohol abuse with intoxication, unspecified; F31.9 Bipolar disorder, unspecified; F20.9 Schizophrenia, unspecified; E78.00 Pure hypercholesterolemia, unspecified; F15.90 Other stimulant use, unspecified, uncomplicated; Y90.9 Presence of alcohol in blood, level not specified
CPT/HCPCS: 99283; Z7502

== ENCOUNTER 2024-10-02 17:47 | Emergency (ER) | payer OTHER ==
[~2024-10-02] VITALS: Ht 175.3 cm; Wt 111.4 kg
[~2024-10-02 17:47] MED LIST changes: -CEPH-558 PO; +CLOT113C TP; -FLUT100B IH; +HYDR-4808 PO; -POLY119P3 PO; -ROSU10TA72 PO; -SULF-261 PO; -TRET20CR TP; -VALA100026 PO
[2024-10-02 17:54] VITALS: BP 121/84; PULSE 86; RESP 18; TEMP 98.1; O2SAT 97
[2024-10-02 18:23] LABS: BASOPHILS % (AUTO) 0.8 % (0.0-2.0); HEMATOCRIT 46.4 % (41-53); HEMOGLOBIN 15.8 g/dL (13.5-17.5); LYMPHOCYTES # (AUTO) 2.3 K/uL (1.0-4.8); LYMPHOCYTES % (AUTO) 28.2 % (22.0-44.0); MEAN CORPUSCULAR HEMOGLOBIN 30.1 pg (26.0-34.0); MEAN CORPUSCULAR HGB CONC 34.1 G/dL (31.0-37.0); MEAN CORPUSCULAR VOLUME 88 fL (80-100); MONOCYTES # (AUTO) 0.7 K/uL (0.1-1.0); MONOCYTES % (AUTO) 8.7 % (2.0-9.0); NEUTROPHILS # (AUTO) 4.8 K/uL (1.8-7.7); NEUTROPHILS % (AUTO) 60.3 % (40.0-70.0); PLATELET COUNT (AUTO) 188 K/uL (150-450); RED BLOOD CELL COUNT(AUTO) 5.27 MIL/uL (4.50-5.90); RED CELL DISTRIBUTION WIDTH 13.7 % (11.5-14.5)
[2024-10-02 18:35] LABS: ANION GAP 7 mmol/L (8-16); CALCIUM, TOTAL 8.8 mg/dL (8.8-10.5); CARBON DIOXIDE 31 mmol/L (22-29); CHLORIDE 99 mmol/L (98-107); CREATININE 1.07 mg/dL (0.60-1.30); GLOMERULAR FILTR. RATE CALC > 60 mL/min (>60); GLUCOSE,RANDOM 131 mg/dL (70-110); POTASSIUM 4.1 mmol/L (3.5-5.1); SODIUM SERUM 137 mmol/L (136-145); UREA NITROGEN, BLOOD 11 mg/dL (7-18)
[2024-10-02 18:45] LABS: TROPONIN I-HIGH SENSITIVITY Less Than 4 ng/L (<76)
== END 2024-10-02 20:07 | disposition home or self-care (01) ==
LOC: EMS 17:47
DX: F41.9 Anxiety disorder, unspecified (principal); R07.89 Other chest pain; F31.9 Bipolar disorder, unspecified; E78.00 Pure hypercholesterolemia, unspecified; F20.9 Schizophrenia, unspecified; F15.90 Other stimulant use, unspecified, uncomplicated; F10.90 Alcohol use, unspecified, uncomplicated; Z79.899 Other long term (current) drug therapy; Y90.9 Presence of alcohol in blood, level not specified
CPT/HCPCS: 71045; 80048; 84484; 85025; 93005; 99285; 36415-L1; 36415-TC

== ENCOUNTER → 2024-10-04 | Emergency (ER) | payer OTHER ==
[~2024-10-04] VITALS: Ht 172.7 cm; Wt 111.4 kg
[2024-10-04 21:06] VITALS: BP 143/77; PULSE 105; RESP 18; TEMP 97.9; O2SAT 97
== END | disposition left against medical advice (07) ==
LOC: EMS 20:54
DX: R46.3 Overactivity (principal); Z53.21 Procedure and treatment not carried out due to patient leaving prior to being seen by health care provider

== ENCOUNTER → 2024-10-06 | Emergency (ER) | payer OTHER ==
[~2024-10-06] VITALS: Ht 175.3 cm; Wt 111.4 kg
[2024-10-06 19:11] VITALS: BP 112/73; PULSE 95; RESP 18; TEMP 98.1; O2SAT 98
[2024-10-06 19:33] LABS: BASOPHILS % (AUTO) 0.5 % (0.0-2.0); EOSINOPHILS % (AUTO) 3.2 % (1.0-6.0); HEMOGLOBIN 15.8 g/dL (13.5-17.5); LYMPHOCYTES # (AUTO) 2.4 K/uL (1.0-4.8); LYMPHOCYTES % (AUTO) 28.8 % (22.0-44.0); MEAN CORPUSCULAR HEMOGLOBIN 29.8 pg (26.0-34.0); MEAN CORPUSCULAR HGB CONC 33.7 G/dL (31.0-37.0); MEAN CORPUSCULAR VOLUME 88 fL (80-100); MONOCYTES # (AUTO) 0.7 K/uL (0.1-1.0); MONOCYTES % (AUTO) 9.1 % (2.0-9.0); NEUTROPHILS # (AUTO) 4.8 K/uL (1.8-7.7); NEUTROPHILS % (AUTO) 58.4 % (40.0-70.0); PLATELET COUNT (AUTO) 172 K/uL (150-450); RED BLOOD CELL COUNT(AUTO) 5.31 MIL/uL (4.50-5.90); RED CELL DISTRIBUTION WIDTH 14.3 % (11.5-14.5); WHITE BLOOD COUNT (AUTO) 8.3 K/uL (4.5-11.0)
[2024-10-06 19:43] LABS: ANION GAP 6 mmol/L (8-16); CALCIUM, TOTAL 8.8 mg/dL (8.8-10.5); CARBON DIOXIDE 29 mmol/L (22-29); CHLORIDE 102 mmol/L (98-107); CREATININE 0.98 mg/dL (0.60-1.30); GLOMERULAR FILTR. RATE CALC > 60 mL/min (>60); GLUCOSE,RANDOM 99 mg/dL (70-110); SODIUM SERUM 137 mmol/L (136-145); UREA NITROGEN, BLOOD 10 mg/dL (7-18)
[2024-10-06 19:47] LABS: ALANINE AMINOTRANSFERASE 43 U/L (12-78); ALBUMIN 3.9 g/dL (3.4-5.0); ALKALINE PHOSPHATASE 85 U/L (46-116); ASPARTATE AMINOTRANSFERASE 23 U/L (15-37); BILIRUBIN,TOTAL 0.5 mg/dL (0.1-1.0); CREATINE KINASE, TOTAL ONLY 217 U/L (39-308); TOTAL PROTEIN, SERUM 7.6 g/dL (6.4-8.2)
[2024-10-06 19:49] LABS: ALCOHOL, BLOOD (SERUM) < 3 mg/dL (0-10)
[2024-10-06 19:51] LABS: B-TYPE NATRIURETIC PEPTIDE 6 pg/mL (0-100)
[2024-10-06 19:52] LABS: TROPONIN I-HIGH SENSITIVITY 5 ng/L (<76)
== END | disposition still patient (30) ==
LOC: EMS 18:47
DX: R00.2 Palpitations (principal); F10.939 Alcohol use, unspecified with withdrawal, unspecified; F41.9 Anxiety disorder, unspecified; E78.00 Pure hypercholesterolemia, unspecified; F31.9 Bipolar disorder, unspecified; F20.9 Schizophrenia, unspecified; F15.90 Other stimulant use, unspecified, uncomplicated; Z79.899 Other long term (current) drug therapy; Y90.9 Presence of alcohol in blood, level not specified
CPT/HCPCS: 99284; 80048; 80076; 82550; 83735; 83880; 84484; 85025; 36415; 93005; G0480

== ENCOUNTER 2024-10-07 19:24 | Emergency (ER) | payer OTHER ==
[~2024-10-07] VITALS: Ht 172.7 cm; Wt 115.9 kg
[2024-10-07 19:28] VITALS: BP 94/60; PULSE 105; RESP 18; TEMP 98.2; O2SAT 97
== END 2024-10-07 20:17 | disposition left against medical advice (07) ==
LOC: EMS 19:28
DX: M79.672 Pain in left foot (principal); Z53.21 Procedure and treatment not carried out due to patient leaving prior to being seen by health care provider

== ENCOUNTER 2024-10-30 15:26 | Emergency (ER) | payer OTHER ==
[~2024-10-30] VITALS: Ht 172.7 cm; Wt 113.6 kg
[2024-10-30 15:35] VITALS: BP 114/86; PULSE 78; RESP 16; TEMP 98.1; O2SAT 100
[2024-10-30] MEDS ORDERED: ROSU10TA72 PO (15:38)
[2024-10-30 16:00] LABS: PLATELET COUNT (AUTO) 200 K/uL (150-450); RED BLOOD CELL COUNT(AUTO) 5.26 MIL/uL (4.50-5.90); RED CELL DISTRIBUTION WIDTH 14.1 % (11.5-14.5); WHITE BLOOD COUNT (AUTO) 8.8 K/uL (4.5-11.0)
[2024-10-30 16:05] LABS: CALCIUM, TOTAL 8.4 mg/dL (8.8-10.5); CREATININE 0.99 mg/dL (0.60-1.30); GLOMERULAR FILTR. RATE CALC > 60 mL/min (>60); GLUCOSE,RANDOM 99 mg/dL (70-110); SODIUM SERUM 139 mmol/L (136-145); UREA NITROGEN, BLOOD 8 mg/dL (7-18)
[2024-10-30 16:19] LABS: ASPARTATE AMINOTRANSFERASE 25.0 U/L (15-37); TOTAL PROTEIN, SERUM 7.9 g/dL (6.4-8.2)
== END 2024-10-30 16:52 | disposition home or self-care (01) ==
LOC: EMS 15:26
DX: F10.10 Alcohol abuse, uncomplicated (principal); F31.9 Bipolar disorder, unspecified; F20.9 Schizophrenia, unspecified; F41.9 Anxiety disorder, unspecified; E78.00 Pure hypercholesterolemia, unspecified; F15.90 Other stimulant use, unspecified, uncomplicated; F10.90 Alcohol use, unspecified, uncomplicated; Z79.899 Other long term (current) drug therapy; Y90.9 Presence of alcohol in blood, level not specified
CPT/HCPCS: 80048; 80076; 83690; 85025; 99283

== ENCOUNTER 2024-11-01 19:24 | Emergency (ER) | payer OTHER ==
[~2024-11-01] VITALS: Ht 172.7 cm; Wt 113.6 kg
[~2024-11-01 19:24] MED LIST changes: -CLOT113C TP; -HYDR-4808 PO; +ROSU10TA72 PO
[2024-11-01 19:30] VITALS: BP 114/78; PULSE 91; RESP 18; TEMP 98.2; O2SAT 98
== END 2024-11-01 21:41 | disposition left against medical advice (07) ==
LOC: EMS 19:24
DX: F41.9 Anxiety disorder, unspecified (principal); Z53.21 Procedure and treatment not carried out due to patient leaving prior to being seen by health care provider

== ENCOUNTER 2024-11-13 12:10 | Emergency (ER) | payer OTHER ==
[~2024-11-13] VITALS: Ht 172.7 cm; Wt 1.1 kg
[2024-11-13 12:20] VITALS: BP 131/80; PULSE 107; RESP 18; TEMP 97.9; O2SAT 99
[2024-11-13 13:02] LABS: PLATELET COUNT (AUTO) 216 K/uL (150-450); RED BLOOD CELL COUNT(AUTO) 5.59 MIL/uL (4.50-5.90); RED CELL DISTRIBUTION WIDTH 14.1 % (11.5-14.5); WHITE BLOOD COUNT (AUTO) 6.6 K/uL (4.5-11.0)
[2024-11-13 13:05] LABS: CALCIUM, TOTAL 8.2 mg/dL (8.8-10.5); CREATININE 0.97 mg/dL (0.60-1.30); GLOMERULAR FILTR. RATE CALC > 60 mL/min (>60); GLUCOSE,RANDOM 115 mg/dL (70-110); SODIUM SERUM 138 mmol/L (136-145); UREA NITROGEN, BLOOD 6 mg/dL (7-18)
[2024-11-13] MEDS ORDERED: OMEP-148 PO (13:59)
[2024-11-13] MEDS: MAG HYDROX/ALUMINUM HYD/SIMETH ES 30 ML SUSPENSION UDCUP PO ONE (14:06)
== END 2024-11-13 14:57 | disposition home or self-care (01) ==
LOC: EMS 12:12
DX: K21.9 Gastro-esophageal reflux disease without esophagitis (principal); K29.70 Gastritis, unspecified, without bleeding; F10.129 Alcohol abuse with intoxication, unspecified; F41.9 Anxiety disorder, unspecified; E78.00 Pure hypercholesterolemia, unspecified; F20.9 Schizophrenia, unspecified; F31.9 Bipolar disorder, unspecified; F15.90 Other stimulant use, unspecified, uncomplicated; Z79.899 Other long term (current) drug therapy; Z98.890 Other specified postprocedural states; Y90.2 Blood alcohol level of 40-59 mg/100 ml
CPT/HCPCS: 99283; 80048; 85025; 36415; G0480

== ENCOUNTER 2024-11-24 13:59 | Emergency (ER) | payer OTHER ==
[~2024-11-24] VITALS: Ht 172.7 cm; Wt 113.0 kg
[~2024-11-24 13:59] MED LIST changes: +OMEP-148 PO
[2024-11-24 14:08] VITALS: BP 123/74; PULSE 101; RESP 18; TEMP 97.9; O2SAT 98
[2024-11-24] MEDS: ONDANSETRON 4 MG TABLET PO ONE (15:12)
[2024-11-24] MEDS: KETOROLAC TROMETHAMINE 60 MG/2 ML VIAL IM ONE (15:12)
[2024-11-24] MEDS: PB/HYOSCY/ATR/SCOP/LIDO/MAALOX 55 ML BOTTLE PO ONE (15:13)
== END 2024-11-24 15:40 | disposition home or self-care (01) ==
LOC: EMS 13:59
DX: R07.89 Other chest pain (principal); F41.9 Anxiety disorder, unspecified; K21.9 Gastro-esophageal reflux disease without esophagitis; E78.00 Pure hypercholesterolemia, unspecified; F20.9 Schizophrenia, unspecified; F31.9 Bipolar disorder, unspecified; F10.90 Alcohol use, unspecified, uncomplicated; F15.90 Other stimulant use, unspecified, uncomplicated; Z79.899 Other long term (current) drug therapy; Y90.9 Presence of alcohol in blood, level not specified
CPT/HCPCS: 99283; 93005; 96372; J1885; Q0162

== ENCOUNTER 2024-12-04 15:22 | Emergency (ER) | payer OTHER ==
[~2024-12-04] VITALS: Ht 172.7 cm; Wt 10.9 kg
[2024-12-04 15:26] VITALS: TEMP 98.2
[2024-12-04 16:59] VITALS: BP 121/80; PULSE 99; RESP 17; O2SAT 99
[2024-12-04 17:23] LABS: PLATELET COUNT (AUTO) 185 K/uL (150-450); RED BLOOD CELL COUNT(AUTO) 5.28 MIL/uL (4.50-5.90); RED CELL DISTRIBUTION WIDTH 13.7 % (11.5-14.5); WHITE BLOOD COUNT (AUTO) 8.6 K/uL (4.5-11.0)
[2024-12-04 17:25] LABS: CALCIUM, TOTAL 8.8 mg/dL (8.8-10.5); CREATININE 1.75 mg/dL (0.60-1.30); GLOMERULAR FILTR. RATE CALC 43.0 mL/min (>60); GLUCOSE,RANDOM 87.0 mg/dL (70-110); SODIUM SERUM 139.0 mmol/L (136-145); UREA NITROGEN, BLOOD 21.0 mg/dL (7-18)
[2024-12-04] MEDS ORDERED: CEPH-558 PO (17:44)
[2024-12-04] MEDS: CEPHALEXIN MONOHYDRATE 500 MG CAPSULE PO ONE (17:56)
== END 2024-12-04 18:10 | disposition home or self-care (01) ==
LOC: EMS 15:23
DX: L03.221 Cellulitis of neck (principal); L03.811 Cellulitis of head [any part, except face]; L02.11 Cutaneous abscess of neck; L02.811 Cutaneous abscess of head [any part, except face]; R21 Rash and other nonspecific skin eruption; E78.00 Pure hypercholesterolemia, unspecified; F20.9 Schizophrenia, unspecified; F31.9 Bipolar disorder, unspecified; F41.9 Anxiety disorder, unspecified; F15.90 Other stimulant use, unspecified, uncomplicated; F10.90 Alcohol use, unspecified, uncomplicated; Z79.899 Other long term (current) drug therapy
CPT/HCPCS: 80048; 85025; 99283

== ENCOUNTER 2024-12-22 18:14 | Emergency (ER) | payer OTHER ==
[~2024-12-22] VITALS: Ht 172.7 cm; Wt 111.4 kg
[~2024-12-22 18:14] MED LIST changes: +CEPH-558 PO
[2024-12-22 18:20] VITALS: BP 119/68; PULSE 90; RESP 18; TEMP 97.4; O2SAT 98
[2024-12-22] MEDS ORDERED: HYDR-4808 PO (18:38)
== END 2024-12-22 19:03 | disposition home or self-care (01) ==
LOC: EMS 19:03
DX: F41.9 Anxiety disorder, unspecified (principal); Z76.0 Encounter for issue of repeat prescription; E78.00 Pure hypercholesterolemia, unspecified; F20.9 Schizophrenia, unspecified; F31.9 Bipolar disorder, unspecified; Z79.899 Other long term (current) drug therapy
CPT/HCPCS: 99283

== ENCOUNTER 2024-12-28 18:44 | Emergency (ER) | payer OTHER ==
[~2024-12-28] VITALS: Ht 172.7 cm; Wt 102.0 kg
[~2024-12-28 18:44] MED LIST changes: -CEPH-558 PO; +HYDR-4808 PO
[2024-12-28 18:55] VITALS: BP 103/67; PULSE 89; RESP 16; TEMP 98.3; O2SAT 98
== END 2024-12-28 22:41 | disposition left against medical advice (07) ==
LOC: EMS 18:44
DX: L02.212 Cutaneous abscess of back [any part, except buttock and flank] (principal); Z53.21 Procedure and treatment not carried out due to patient leaving prior to being seen by health care provider

== ENCOUNTER 2025-01-18 00:19 | Emergency (ER) | payer OTHER ==
[~2025-01-18] VITALS: Ht 172.7 cm; Wt 113.6 kg
[~2025-01-18 00:19] MED LIST changes: -ROSU10TA72 PO; +ROSU10TA98 PO
[2025-01-18 00:22] VITALS: BP 110/72; PULSE 80; RESP 18; TEMP 98.6; O2SAT 99
[2025-01-18 01:11] LABS: PLATELET COUNT (AUTO) 192 K/uL (150-450); RED BLOOD CELL COUNT(AUTO) 4.97 MIL/uL (4.50-5.90); RED CELL DISTRIBUTION WIDTH 13.8 % (11.5-14.5); WHITE BLOOD COUNT (AUTO) 7.7 K/uL (4.5-11.0)
[2025-01-18 01:19] LABS: CALCIUM, TOTAL 8.9 mg/dL (8.8-10.5); CREATININE 0.86 mg/dL (0.60-1.30); GLOMERULAR FILTR. RATE CALC > 60 mL/min (>60); GLUCOSE,RANDOM 118 mg/dL (70-110); SODIUM SERUM 139 mmol/L (136-145); UREA NITROGEN, BLOOD 11 mg/dL (7-18)
[2025-01-18 01:31] LABS: TROPONIN I-HIGH SENSITIVITY Less Than 4 ng/L (<76)
[2025-01-18] MEDS: PB/HYOSCY/ATR/SCOP/LIDO/MAALOX 55 ML BOTTLE PO ONE (02:00)
== END 2025-01-18 02:01 | disposition home or self-care (01) ==
LOC: EMS 00:19
DX: K21.9 Gastro-esophageal reflux disease without esophagitis (principal); E78.00 Pure hypercholesterolemia, unspecified; F20.9 Schizophrenia, unspecified; F31.9 Bipolar disorder, unspecified; F41.9 Anxiety disorder, unspecified; R07.89 Other chest pain; Z79.899 Other long term (current) drug therapy
CPT/HCPCS: 80048; 84484; 85025; 93005; 99284

== ENCOUNTER 2025-01-20 18:55 | Emergency (ER) | payer OTHER ==
[~2025-01-20] VITALS: Ht 172.7 cm; Wt 113.6 kg
[2025-01-20 21:06] LABS: PLATELET COUNT (AUTO) 203 K/uL (150-450); RED BLOOD CELL COUNT(AUTO) 5.20 MIL/uL (4.50-5.90); RED CELL DISTRIBUTION WIDTH 13.9 % (11.5-14.5); WHITE BLOOD COUNT (AUTO) 9.4 K/uL (4.5-11.0)
[2025-01-20 21:21] LABS: CALCIUM, TOTAL 9.1 mg/dL (8.8-10.5); CREATININE 1.16 mg/dL (0.60-1.30); GLOMERULAR FILTR. RATE CALC > 60 mL/min (>60); GLUCOSE,RANDOM 108 mg/dL (70-110); SODIUM SERUM 141 mmol/L (136-145); UREA NITROGEN, BLOOD 8 mg/dL (7-18)
[2025-01-20 21:27] LABS: ASPARTATE AMINOTRANSFERASE 20.0 U/L (15-37); TOTAL PROTEIN, SERUM 8.2 g/dL (6.4-8.2)
[2025-01-20 22:16] VITALS: BP 127/77; PULSE 76; RESP 14; TEMP 98; O2SAT 97
== END 2025-01-20 23:30 | disposition home or self-care (01) ==
LOC: EMS 18:55
DX: S39.011A Strain of muscle, fascia and tendon of abdomen, initial encounter (principal); E78.00 Pure hypercholesterolemia, unspecified; F20.9 Schizophrenia, unspecified; F31.9 Bipolar disorder, unspecified; F41.9 Anxiety disorder, unspecified; I10 Essential (primary) hypertension; Z79.899 Other long term (current) drug therapy; X50.1XXA Overexertion from prolonged static or awkward postures, initial encounter; Y93.89 Activity, other specified; Y92.89 Other specified places as the place of occurrence of the external cause; Y99.8 Other external cause status
CPT/HCPCS: 80048; 80076; 83690; 85025; 99283

== ENCOUNTER 2025-01-25 14:32 | Emergency (ER) | payer OTHER ==
[~2025-01-25] VITALS: Ht 172.7 cm; Wt 113.6 kg
[2025-01-25 14:35] VITALS: TEMP 98.3
[2025-01-25 14:50] VITALS: BP 119/64; PULSE 95; RESP 15; O2SAT 99
[2025-01-25] MEDS: FAMOTIDINE 20 MG TABLET PO ONE (15:54)
[2025-01-25 15:58] LABS: PLATELET COUNT (AUTO) 203 K/uL (150-450); RED BLOOD CELL COUNT(AUTO) 4.99 MIL/uL (4.50-5.90); RED CELL DISTRIBUTION WIDTH 13.9 % (11.5-14.5); WHITE BLOOD COUNT (AUTO) 7.2 K/uL (4.5-11.0)
[2025-01-25 16:01] LABS: CALCIUM, TOTAL 8.3 mg/dL (8.8-10.5); CREATININE 1.08 mg/dL (0.60-1.30); GLOMERULAR FILTR. RATE CALC > 60 mL/min (>60); GLUCOSE,RANDOM 89 mg/dL (70-110); SODIUM SERUM 138 mmol/L (136-145); UREA NITROGEN, BLOOD 6 mg/dL (7-18)
[2025-01-25] MEDS ORDERED: FAMO40TA76 PO (16:41)
== END 2025-01-25 17:07 | disposition home or self-care (01) ==
LOC: EMS 14:41
DX: K29.20 Alcoholic gastritis without bleeding (principal); F10.229 Alcohol dependence with intoxication, unspecified; F41.9 Anxiety disorder, unspecified; F20.9 Schizophrenia, unspecified; E78.00 Pure hypercholesterolemia, unspecified; F31.9 Bipolar disorder, unspecified; Z79.899 Other long term (current) drug therapy; Y90.2 Blood alcohol level of 40-59 mg/100 ml
CPT/HCPCS: 99284; 80048; 85025; 36415; 93005; G0480

== ENCOUNTER 2025-01-25 21:43 | Emergency (ER) | payer OTHER ==
[~2025-01-25] VITALS: Ht 170.2 cm; Wt 100.0 kg
[~2025-01-25 21:43] MED LIST changes: +FAMO40TA76 PO
[2025-01-25 21:56] VITALS: BP 120/54; PULSE 95; RESP 18; TEMP 98.1; O2SAT 97
== END 2025-01-25 22:53 | disposition left against medical advice (07) ==
LOC: EMS 21:43
DX: S40.262A Insect bite (nonvenomous) of left shoulder, initial encounter (principal); Z53.21 Procedure and treatment not carried out due to patient leaving prior to being seen by health care provider; W57.XXXA Bitten or stung by nonvenomous insect and other nonvenomous arthropods, initial encounter; Y93.89 Activity, other specified; Y92.89 Other specified places as the place of occurrence of the external cause; Y99.8 Other external cause status
CPT/HCPCS: 99281; Z7502

== ENCOUNTER 2025-01-26 19:30 | Emergency (ER) | payer OTHER ==
[~2025-01-26] VITALS: Ht 172.7 cm; Wt 117.3 kg
[~2025-01-26 19:30] MED LIST changes: -HYDR-4808 PO; -OMEP-148 PO; -ROSU10TA98 PO
[2025-01-26 19:37] VITALS: BP 120/82; PULSE 86; RESP 16; TEMP 97.8; O2SAT 98
== END 2025-01-26 22:40 | disposition left against medical advice (07) ==
LOC: EMS 19:30
DX: S40.862A Insect bite (nonvenomous) of left upper arm, initial encounter (principal); Z53.21 Procedure and treatment not carried out due to patient leaving prior to being seen by health care provider; W57.XXXA Bitten or stung by nonvenomous insect and other nonvenomous arthropods, initial encounter; Y93.89 Activity, other specified; Y92.89 Other specified places as the place of occurrence of the external cause; Y99.8 Other external cause status
CPT/HCPCS: 99281; Z7502

== ENCOUNTER 2025-02-07 00:22 | Emergency (ER) | payer OTHER ==
[~2025-02-07] VITALS: Ht 167.6 cm; Wt 111.4 kg
[2025-02-07 00:40] VITALS: BP 103/73; PULSE 109; RESP 14; TEMP 97.7; O2SAT 98
[2025-02-07 02:27] LABS: APPEARANCE,URINE CLEAR (CLEAR); GLUCOSE, URINE (UA) NEGATIVE (NEGATIVE); LEUKOCYTE ESTERASE ,URINE NEGATIVE (NEGATIVE); NITRATE,URINE NEGATIVE (NEGATIVE); OCCULT BLOOD,URINE NEGATIVE (NEGATIVE); PH,URINE DRUG SCREEN 5.5 (5.0-8.0); SPECIFIC GRAVITIY, URINE 1.016 (1.003-1.030)
[2025-02-07 02:31] LABS: ALCOHOL, URINE DRUG SCREEN NEGATIVE (NEGATIVE); AMPHET/METH SCREEN,URINE NEGATIVE (NEGATIVE); BARBITURATE SCREEN, URINE NEGATIVE (NEGATIVE); CANNABINOID SCREEN,URINE NEGATIVE (NEGATIVE); COCAINE SCREEN,URINE NEGATIVE (NEGATIVE); METHADONE SCREEN, URINE NEGATIVE (NEGATIVE)
== END 2025-02-07 06:27 | disposition left against medical advice (07) ==
LOC: EMS 00:23
DX: R10.A2 Flank pain, left side (principal); R07.89 Other chest pain; Z53.21 Procedure and treatment not carried out due to patient leaving prior to being seen by health care provider
CPT/HCPCS: 80307; 81003; 99281

== ENCOUNTER 2025-02-13 14:42 | Emergency (ER) | payer OTHER ==
[~2025-02-13] VITALS: Ht 172.7 cm; Wt 111.4 kg
[2025-02-13 15:15] LABS: PLATELET COUNT (AUTO) 210 K/uL (150-450); RED BLOOD CELL COUNT(AUTO) 5.16 MIL/uL (4.50-5.90); RED CELL DISTRIBUTION WIDTH 14.3 % (11.5-14.5); WHITE BLOOD COUNT (AUTO) 8.0 K/uL (4.5-11.0)
[2025-02-13 15:22] LABS: CALCIUM, TOTAL 8.7 mg/dL (8.8-10.5); CREATININE 0.87 mg/dL (0.60-1.30); GLOMERULAR FILTR. RATE CALC > 60 mL/min (>60); GLUCOSE,RANDOM 81 mg/dL (70-110); SODIUM SERUM 140 mmol/L (136-145); UREA NITROGEN, BLOOD 9 mg/dL (7-18)
[2025-02-13 15:28] LABS: ASPARTATE AMINOTRANSFERASE 22.0 U/L (15-37); TOTAL PROTEIN, SERUM 8.3 g/dL (6.4-8.2)
[2025-02-13 15:30] VITALS: BP 121/74; PULSE 89; RESP 16; TEMP 98.4; O2SAT 100
[2025-02-13 15:32] LABS: ALCOHOL, BLOOD (SERUM) 6.0 mg/dL (0-10)
[2025-02-18] MEDS ORDERED: CHLO10CA7 PO (12:24)
== END 2025-02-13 17:51 | disposition home or self-care (01) ==
LOC: EMS 14:42
DX: F10.239 Alcohol dependence with withdrawal, unspecified (principal); F41.9 Anxiety disorder, unspecified; E78.00 Pure hypercholesterolemia, unspecified; F20.9 Schizophrenia, unspecified; F31.9 Bipolar disorder, unspecified; Z79.899 Other long term (current) drug therapy; Y90.9 Presence of alcohol in blood, level not specified
CPT/HCPCS: 99283; 80048; 80076; 85025; 36415; G0480

== ENCOUNTER 2025-02-14 21:18 | Emergency (ER) | payer OTHER ==
[~2025-02-14] VITALS: Ht 172.7 cm; Wt 111.4 kg
[2025-02-14 22:30] VITALS: BP 114/77; PULSE 89; RESP 18; TEMP 98.105288; O2SAT 100
[2025-02-18] MEDS ORDERED: CHLO10CA7 PO (12:24)
== END 2025-02-14 23:20 | disposition home or self-care (01) ==
LOC: EMS 21:20
DX: F10.129 Alcohol abuse with intoxication, unspecified (principal); E78.00 Pure hypercholesterolemia, unspecified; F20.9 Schizophrenia, unspecified; F31.9 Bipolar disorder, unspecified; F41.9 Anxiety disorder, unspecified; Z79.899 Other long term (current) drug therapy; Y90.9 Presence of alcohol in blood, level not specified
CPT/HCPCS: 99283

== ENCOUNTER 2025-02-16 19:13 | Emergency (ER) | payer OTHER ==
[~2025-02-16] VITALS: Ht 172.7 cm; Wt 111.0 kg
[2025-02-16 19:29] VITALS: BP 106/74; PULSE 92; RESP 16; TEMP 98; O2SAT 98
== END 2025-02-16 21:27 | disposition left against medical advice (07) ==
LOC: EMS 19:13
DX: R07.81 Pleurodynia (principal); Z53.21 Procedure and treatment not carried out due to patient leaving prior to being seen by health care provider
CPT/HCPCS: 99281; Z7502

== ENCOUNTER 2025-02-18 11:34 | Emergency (ER) | payer OTHER ==
[~2025-02-18] VITALS: Ht 172.7 cm; Wt 111.0 kg
[2025-02-18 11:42] VITALS: TEMP 97.9
[2025-02-18 12:19] VITALS: BP 113/78; PULSE 83; RESP 18; O2SAT 99
[2025-02-18] MEDS ORDERED: CHLO10CA7 PO ×2 (12:24→15:02)
== END 2025-02-18 12:53 | disposition home or self-care (01) ==
LOC: EMS 11:40
DX: F41.9 Anxiety disorder, unspecified (principal); E78.00 Pure hypercholesterolemia, unspecified; F20.9 Schizophrenia, unspecified; F31.9 Bipolar disorder, unspecified; F10.239 Alcohol dependence with withdrawal, unspecified; Z79.899 Other long term (current) drug therapy; Y90.9 Presence of alcohol in blood, level not specified
CPT/HCPCS: 99282; 99283

== ENCOUNTER 2025-02-23 20:33 | Emergency (ER) | payer OTHER ==
[~2025-02-23] VITALS: Ht 172.7 cm; Wt 113.6 kg
[2025-02-23 21:21] LABS: PLATELET COUNT (AUTO) 218 K/uL (150-450); RED BLOOD CELL COUNT(AUTO) 5.04 MIL/uL (4.50-5.90); RED CELL DISTRIBUTION WIDTH 13.7 % (11.5-14.5); WHITE BLOOD COUNT (AUTO) 6.7 K/uL (4.5-11.0)
[2025-02-23 21:29] LABS: CALCIUM, TOTAL 8.3 mg/dL (8.8-10.5); CREATININE 0.86 mg/dL (0.60-1.30); GLOMERULAR FILTR. RATE CALC > 60 mL/min (>60); GLUCOSE,RANDOM 131 mg/dL (70-110); SODIUM SERUM 142 mmol/L (136-145); UREA NITROGEN, BLOOD 6 mg/dL (7-18)
[2025-02-23 21:33] LABS: ASPARTATE AMINOTRANSFERASE 26.0 U/L (15-37); TOTAL PROTEIN, SERUM 8.2 g/dL (6.4-8.2)
[2025-02-23 21:34] LABS: ALCOHOL, BLOOD (SERUM) 78.0 mg/dL (0-10)
[2025-02-23] MEDS: ONDANSETRON 4 MG TABLET PO ONE (22:52)
[2025-02-23] MEDS: FAMOTIDINE 20 MG TABLET PO ONE (22:52)
[2025-02-23 23:40] VITALS: BP 121/68; PULSE 88; RESP 18; TEMP 98.3; O2SAT 99
== END 2025-02-23 23:52 | disposition home or self-care (01) ==
LOC: EMS 20:33
DX: K29.20 Alcoholic gastritis without bleeding (principal); E78.00 Pure hypercholesterolemia, unspecified; F20.9 Schizophrenia, unspecified; F31.9 Bipolar disorder, unspecified; Z79.899 Other long term (current) drug therapy; F10.20 Alcohol dependence, uncomplicated; Y90.3 Blood alcohol level of 60-79 mg/100 ml
CPT/HCPCS: 99283; 80048; 80076; 83690; 85025; 36415; G0480; Q0162

== ENCOUNTER 2025-03-01 17:06 | Emergency (ER) | payer OTHER ==
[~2025-03-01] VITALS: Ht 172.7 cm; Wt 111.3 kg
[2025-03-01 17:13] VITALS: BP 124/74; PULSE 98; RESP 18; TEMP 98.1; O2SAT 99
[2025-03-01 18:09] LABS: PLATELET COUNT (AUTO) 215 K/uL (150-450); RED BLOOD CELL COUNT(AUTO) 4.93 MIL/uL (4.50-5.90); RED CELL DISTRIBUTION WIDTH 13.9 % (11.5-14.5); WHITE BLOOD COUNT (AUTO) 8.1 K/uL (4.5-11.0)
[2025-03-01 18:11] LABS: CALCIUM, TOTAL 8.8 mg/dL (8.8-10.5); CREATININE 1.04 mg/dL (0.60-1.30); GLOMERULAR FILTR. RATE CALC > 60 mL/min (>60); GLUCOSE,RANDOM 139 mg/dL (70-110); SODIUM SERUM 138 mmol/L (136-145); UREA NITROGEN, BLOOD 10 mg/dL (7-18)
[2025-03-01] MEDS: LIDOCAINE 5% TRANSDERMAL PATCH TD ONE (18:12)
[2025-03-01 18:22] LABS: TROPONIN I-HIGH SENSITIVITY 4 ng/L (<76)
[2025-03-01 18:51] LABS: APPEARANCE,URINE CLEAR (CLEAR); GLUCOSE, URINE (UA) NEGATIVE (NEGATIVE); LEUKOCYTE ESTERASE ,URINE NEGATIVE (NEGATIVE); NITRATE,URINE NEGATIVE (NEGATIVE); OCCULT BLOOD,URINE NEGATIVE (NEGATIVE); SPECIFIC GRAVITIY, URINE 1.030 (1.003-1.030)
== END 2025-03-01 19:12 | disposition home or self-care (01) ==
LOC: EMS 17:06
DX: R07.89 Other chest pain (principal); F41.9 Anxiety disorder, unspecified; F31.9 Bipolar disorder, unspecified; E78.00 Pure hypercholesterolemia, unspecified; F20.9 Schizophrenia, unspecified; F10.20 Alcohol dependence, uncomplicated; Z79.899 Other long term (current) drug therapy; Y90.9 Presence of alcohol in blood, level not specified
CPT/HCPCS: 71045; 80048; 81003; 84484; 85025; 85379; 93005; 99285; 36415-L1; 36415-TC

== ENCOUNTER 2025-03-04 17:50 | Emergency (ER) | payer OTHER | END 2025-03-04 18:16 | disposition left against medical advice (07) | LOC: EMS 17:50 | DX: F41.9 Anxiety disorder, unspecified (principal); Z53.21 Procedure and treatment not carried out due to patient leaving prior to being seen by health care provider ==

== ENCOUNTER 2025-03-16 12:47 | Emergency (ER) | payer OTHER ==
[~2025-03-16] VITALS: Ht 172.7 cm; Wt 113.6 kg
[2025-03-16 12:50] VITALS: BP 127/78; PULSE 106; RESP 20; TEMP 98.6; O2SAT 99
[2025-03-16] MEDS ORDERED: ONDA-104 PO (13:35)
[2025-03-16] MEDS ORDERED: CHLO25CA6 PO (13:35)
[2025-03-16] MEDS: ONDANSETRON 4 MG TABLET PO ONE (13:53)
== END 2025-03-16 14:01 | disposition home or self-care (01) ==
LOC: EMS 12:47
DX: F10.229 Alcohol dependence with intoxication, unspecified (principal); K29.20 Alcoholic gastritis without bleeding; F41.9 Anxiety disorder, unspecified; E78.00 Pure hypercholesterolemia, unspecified; F20.9 Schizophrenia, unspecified; F31.9 Bipolar disorder, unspecified; R10.13 Epigastric pain; Z79.899 Other long term (current) drug therapy; Y90.9 Presence of alcohol in blood, level not specified
CPT/HCPCS: 99283; Q0162

== ENCOUNTER 2025-03-27 18:23 | Emergency (ER) | payer OTHER ==
[~2025-03-27] VITALS: Ht 172.7 cm; Wt 111.4 kg
[~2025-03-27 18:23] MED LIST changes: +CHLO25CA6 PO; -FAMO40TA76 PO; +ONDA-104 PO
[2025-03-27 18:27] VITALS: BP 111/66; PULSE 82; RESP 18; TEMP 97.9; O2SAT 98
[2025-03-27] MEDS ORDERED: ROSU10TA98 PO (18:31)
== END 2025-03-27 22:27 | disposition left against medical advice (07) ==
LOC: EMS 18:23
DX: R51.9 Headache, unspecified (principal); Z53.21 Procedure and treatment not carried out due to patient leaving prior to being seen by health care provider
CPT/HCPCS: 99281; Z7502

== ENCOUNTER 2025-04-01 19:12 | Emergency (ER) | payer OTHER ==
[~2025-04-01] VITALS: Ht 172.7 cm; Wt 111.4 kg
[~2025-04-01 19:12] MED LIST changes: +ROSU10TA98 PO
[2025-04-01 19:23] VITALS: TEMP 99
[2025-04-01] MEDS: IBUPROFEN 400 MG TABLET PO ONE (21:07)
[2025-04-01] MEDS: ACETAMINOPHEN 500 MG TABLET PO ONE (21:07)
[2025-04-01] MEDS: LIDOCAINE 5% TRANSDERMAL PATCH TD ONE (21:08)
[2025-04-01] MEDS: MAG HYDROX/ALUMINUM HYD/SIMETH 30 ML SUSPENSION UDCUP PO ONE (21:16)
[2025-04-01 21:36] VITALS: BP 111/73; PULSE 90; RESP 16; O2SAT 99
== END 2025-04-01 22:43 | disposition home or self-care (01) ==
LOC: EMS 19:12
DX: M54.50 Low back pain, unspecified (principal); M79.18 Myalgia, other site; F41.9 Anxiety disorder, unspecified; F20.9 Schizophrenia, unspecified; F31.9 Bipolar disorder, unspecified; F10.20 Alcohol dependence, uncomplicated; E78.00 Pure hypercholesterolemia, unspecified; Z79.899 Other long term (current) drug therapy
CPT/HCPCS: 99284; Z7502; Z7610